=== PATIENT | male | born 1975 | race Caucasian/White ===

== ENCOUNTER 2021-09-12 15:10 | Inpatient (IN) | payer MEDICAID, SELFPAY ==
[2021-09-12] VITALS (11 sets, daily range): BP systolic 84–142; BP diastolic 63–90; PULSE 0–156; RESP 14–31; TEMP 36–36.8; O2SAT 95–98; BMI 30.7
--- NOTE | 2021-09-12 15:39 | XR_ITS ---
WS: [id number] Portable AP upright chest, 09/12/2021 Clinical Data: dyspnea/cough Comparison: Portable chest, 12/17/2018. Findings: No nodules, masses or effusions are seen. The heart is enlarged. The pulmonary vascularity is not increased. No pneumonia or pneumothorax is seen. Monitor leads on the chest wall. XR/XR chest 1V portable [id number] Impression: Cardiomegaly.
--- NOTE | 2021-09-12 15:40 | ECG_ITS ---
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 Measurements Intervals [place] Rate: 149 P: [place]: QRS: 149 QRSD: 91 T: 27 QT: 284 QTc: 448 Interpretive Statements ATRIAL FIBRILLATION WITH RAPID VENTRICULAR RESPONSE POSSIBLE RIGHT VENTRICULAR HYPERTROPHY [SOME/ALL OF: PROMINENT R IN V1, LATE TRANSITION, RAD, KISHAN, SSS] NONSPECIFIC T-WAVE ABNORMALITY Compared to ECG 12/17/2018 14:47:35 Atrial abnormality now present T-wave abnormality now present Sinus rhythm no longer present Sinus arrhythmia no longer present Electronically Signed On 09-12-2021 20:44:47 LAST REPAIRER HELPER by Basim Alford M.D. [id number]
--- NOTE | 2021-09-12 15:42 | ED_ITS ---
HPI - Arrhythmia/Palpitations General: Chief Complaint: Shortness of Breath/Dyspnea Stated Complaint: states has a-fib Time Seen by Provider: 09/12/21 15:39 History of Present Illness: HPI narrative: 46-year-old male presents emergency room with complaint of rapid heart rate. Patient is a known history of atrial fibrillation without ventricular spots in the past he required esmolol after failing several other drips to control his rate. He was admitted. Ultimately discharged home on metoprolol he stopped taking it after a while because he had run out he states he did not have any rapid heart rates and he felt better so he is continue to stay off of that recently he began to have palpitations and rapid heart rate they gave him a double dose of metoprolol yesterday he did not feel good from side effects of meds so he did not take the double dose this morning he took his regular dose he comes in today complaining of shortness of breath rapid heart rate and generally not feeling well. Denies any chest pain. MD complaint: rapid heart beat, skipped beats and palpitations Onset (ago): hour(s) Duration: constant Severity: moderate Context: occurred during rest Arrhythmia history: atrial fibrillation Associated symptoms: Reports anxiety; Deny cough, diaphoresis, muscle cramps, nausea, paresthesias, pre-syncope, sense of impending doom, short of breath, syncope or vomiting Treatments prior to arrival: beta-roxy Review of Systems Const: Denies: diaphoresis ENMT: Denies: throat pain, ear or mastoid pain, nasal discharge or nasal congestion Card: Denies: syncope or pre-syncope Resp: Denies: dyspnea, productive cough or non-productive cough GI: Denies: nausea or vomiting : Denies: flank pain, dysuria, urinary frequency or urinary urgency Musc: Denies: muscle cramps Skin/Breast: Denies: rash or pruritus Psych: Reports: anxiety PFSH ED PFSH: Medical History Paroxysmal atrial fibrillation with RVR Rash Surgical History No history of previous surgery Family History Mother CAD (coronary artery disease) Cancer Lung disease Social History (Updated 09/12/21 @ 18:47 by Jackson Viera MD) Smoking and tobacco status: former smoker Alcohol intake: former Substance/Drug Use: current Substance/Drug use type: Marijuana Lives independently: Yes Marital status: Current occupational status: employed 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 Physical Exam Const: COMMON NORMALS: no acute distress GENERAL APPEARANCE: cooperative and comfortable ORIENTATION/CONSCIOUSNESS: Yes awake HENMT: COMMON NORMALS: normocephalic, atraumatic and hearing grossly normal bilaterally HEAD & SCALP: normocephalic and atraumatic Resp: COMMON NORMALS: normal respiratory effort, No retractions and No use of accessory muscles AUSCULTATION: crackles Laterality: bilateral (At bases) Cardio: RATE: tachycardic RHYTHM: abnormal rhythm irregularly irregular GI: COMMON NORMALS: Soft to palpation and No hepatosplenomegaly present AUSCULTATION: Yes normoactive bowel sounds PALPATION: Yes Soft to palpation, No Tenderness to palpation present (GI), No Guarding due to palpation present (GI) and Yes No hepatosplenomegaly present Extremity: COMMON NORMALS: normal to inspection, capillary refill normal, no clubbing, cyanosis or edema, no calf tenderness and no pedal edema Skin: COMMON NORMALS: no rashes or lesions noted GENERAL SKIN EXAM: no rashes or lesions noted Course Vital Signs: Vital signs: Vital Signs Temperature 97.2 F L 09/14/21 11:55 Pulse Rate 130 H 09/14/21 11:55 Respiratory Rate 19 H 09/14/21 11:55 Blood Pressure 109/93 09/14/21 11:55 Pulse Oximetry 99 09/14/21 11:55 MDM - Arrhythmia/Palpitations MDM Narrative: Medical decision making narrative: Patient improved with initiation of esmolol. Discussed with hospitalist will go ahead and admit orders written. Lab Data: Labs: Lab Results 09/12/21 09/12/21 09/12/21 15:35 15:35 15:35 WBC 15.9 10^3/uL H 10 ^3/uL (4.0-10.0) RBC 5.48 10^6/uL H 10 ^6/uL (4.1-5.3) Hgb 16.5 g/dL g/dL (11.7-16.6) Hct 49.3 % % (42.0-52.0) MCV 90.0 fl fl (80-94) MCH 30.1 pg pg (28.0-34.0) MCHC 33.5 g/dL g/dL (30.0-36.0) RDW 14.2 % % (12.1-15.1) Plt Count 322 10^3/cmm 10^3 /cmm (130-400) MPV 10.3 fL fL (7.4-10.4) Neut % (Auto) 60.9 % % Lymph % (Auto) 25.8 % % [place] % (Auto) 11.8 % % Eos % (Auto) 0.6 % % Baso % (Auto) 0.6 % % Neut # (Auto) 9.66 10^3/uL H 10 ^3/uL (1.8-7.7) Lymph # (Auto) 4.1 10^3/uL 10^3/ uL (0.8-4.8) [place] # (Auto) 1.9 10^3/uL H 10^ 3/uL (0.2-0.9) Eos # (Auto) 0.1 10^3/uL 10^3/ uL (0.0-0.8) Baso # (Auto) 0.1 10^3/uL 10^3/ uL (0.0-0.1) Nucleated RBC % (a uto) 0 % % Nucleated RBCs # 0.0 /100WBC /100W BC D-Dimer Sodium 133 mmol/L L mmol /L (136-145) Potassium 5.3 mmol/L H mmol /L (3.5-5.1) Chloride 100 mmol/L mmol/L (98-107) Carbon Dioxide 21 mmol/L L mmol/ L (22-29) Anion Gap 17.3 (5-19) BUN 27 mg/dL H mg/dL (6-20) Creatinine 1.0 mg/dL mg/dL (0.7-1.2) GFR Calculation 80.1 mL/min L mL/ min (90-130) Glucose 103 mg/dL mg/dL (65-115) Calculated Osmolal ity 281 mOsm/kg L mOs m/kg (285-295) Calcium 9.1 mg/dL mg/dL (8.5-10.5) Total Bilirubin 1.6 mg/dL H mg/dL (0.15-1.2) AST 243 U/L H U/L (0-40) ALT 400 U/L H U/L (0-41) Alkaline Phosphata se 228 IU/L H IU/L (40-130) Creatine Kinase 431 U/L H* U/L (39-308) Troponin T Baselin e 27 ng/L H ng/L (0-15) Troponin T 120 Min [place] Delta Troponin T C-Reactive Protein NT-Pro-B Natriuret Pep 9375 pg/mL H pg/m L (0-125) Total Protein 5.9 g/dL L g/dL (6.6-8.7) Albumin 4.0 g/dL g/dL (3.5-5.2) Globulin 1.9 g/dL g/dL (1.3-4.6) TSH Hepatitis A IgM Ab Hep Bs Antigen Hep B Core IgM Ab Hepatitis C Antibo dy SARS-CoV-2 Ag (Rap id) 09/12/21 09/12/21 09/12/21 15:35 17:40 17:40 WBC RBC Hgb Hct MCV MCH MCHC RDW Plt Count MPV Neut % (Auto) Lymph % (Auto) [place] % (Auto) Eos % (Auto) Baso % (Auto) Neut # (Auto) Lymph # (Auto) [place] # (Auto) Eos # (Auto) Baso # (Auto) Nucleated RBC % (a uto) Nucleated RBCs # D-Dimer 1.09 ug/mIFEU H u g/mIFEU (0-0.59) Sodium Potassium Chloride Carbon Dioxide Anion Gap BUN Creatinine GFR Calculation Glucose Calculated Osmolal ity Calcium Total Bilirubin AST ALT Alkaline Phosphata se Creatine Kinase Troponin T Baselin e Troponin T 120 Min [place] 26.08 ng/L H ng/L (0-15) Delta Troponin T -0.92 ABS# L ABS# (0-10) C-Reactive Protein NT-Pro-B Natriuret Pep Total Protein Albumin Globulin TSH Hepatitis A IgM Ab Non-reactive (Nonreactive) Hep Bs Antigen Non-reactive (Nonreactive) Hep B Core IgM Ab Non-reactive (Nonreactive) Hepatitis C Antibo dy Non-reactive (Nonreactive) SARS-CoV-2 Ag (Rap id) 09/12/21 09/12/21 17:40 18:30 WBC RBC Hgb Hct MCV MCH MCHC RDW Plt Count MPV Neut % (Auto) Lymph % (Auto) [place] % (Auto) Eos % (Auto) Baso % (Auto) Neut # (Auto) Lymph # (Auto) [place] # (Auto) Eos # (Auto) Baso # (Auto) Nucleated RBC % (a uto) Nucleated RBCs # D-Dimer Sodium Potassium Chloride Carbon Dioxide Anion Gap BUN Creatinine GFR Calculation Glucose Calculated Osmolal ity Calcium Total Bilirubin AST ALT Alkaline Phosphata se Creatine Kinase Troponin T Baselin e Troponin T 120 Min [place] Delta Troponin T C-Reactive Protein 7.4 mg/L H mg/L (0.0-4.9) NT-Pro-B Natriuret Pep Total Protein Albumin Globulin TSH 1.84 uIU/mL uIU/m L (0.27-4.20) Hepatitis A IgM Ab Hep Bs Antigen Hep B Core IgM Ab Hepatitis C Antibo dy SARS-CoV-2 Ag (Rap id) Negative (Negative) Discharge Plan Discharge Patient Disposition: Admitted As Inpatient Admit Provider: Jackson Viera Clinical Impression: Paroxysmal atrial fibrillation with RVR, Acute CHF Condition: Stable Coding Level of Care Code ED Coloring Room Worker for Chg Fwd Exam Detailed
[2021-09-12 15:50] LABS: Basophils # 0.1 10^3/uL (0.0-0.1); Basophils % 0.6 %; Eosinophils # 0.1 10^3/uL (0.0-0.8); Eosinophils % 0.6 %; Hematocrit 49.3 % (42.0-52.0); Hemoglobin 16.5 g/dL (11.7-16.6); Lymphocytes # 4.1 10^3/uL (0.8-4.8); Lymphocytes % 25.8 %; Mean Corpuscular HGB Conc 33.5 g/dL (30.0-36.0); Mean Corpuscular Hemoglobin 30.1 pg (28.0-34.0); Mean Platelet Volume 10.3 fL (7.4-10.4); Monocytes # 1.9 10^3/uL (0.2-0.9); Monocytes % 11.8 %; Neutrophils # 9.66 10^3/uL (1.8-7.7); Neutrophils % 60.9 %; Nucleated Red Blood Cells % 0 %; Platelet Count 322 10^3/cmm (130-400); Red Blood Count 5.48 10^6/uL (4.1-5.3); Red Cell Distribution Width 14.2 % (12.1-15.1); White Blood Count 15.9 10^3/uL (4.0-10.0)
[2021-09-12] MEDS: esmolol drip 2,500 MG/250 ML PREMIX 30.89 MG IV (15:58)
[2021-09-12 16:23] LABS: Troponin(5th) Baseline 27 ng/L (0-15)
[2021-09-12 16:27] LABS: Alanine Aminotransferase 400 U/L (0-41); Alkaline Phosphatase 228 IU/L (40-130); Anion Gap 17.3 (5-19); Aspartate Amino Transferase 243 U/L (0-40); Blood Urea Nitrogen 27 mg/dL (6-20); Calcium 9.1 mg/dL (8.5-10.5); Carbon Dioxide 21 mmol/L (22-29); Chloride 100 mmol/L (98-107); Globulin 1.9 g/dL (1.3-4.6); Glomerular Filtration Rate 80.1 mL/min (90-130); Glucose 103 mg/dL (65-115); NT Pro B Type Natriuretic Pept 9375 pg/mL (0-125); Osmolality Calculated 281 mOsm/kg (285-295); Potassium 5.3 mmol/L (3.5-5.1); Sodium 133 mmol/L (136-145); Total Bilirubin 1.6 mg/dL (0.15-1.2); Total Protein 5.9 g/dL (6.6-8.7)
[2021-09-12 16:29] LABS: Creatine Phosphokinase 431 U/L (39-308)
--- NOTE | 2021-09-12 17:13 | USR_ITS ---
PROCEDURE INFORMATION: Exam: US Abdomen, Limited; Right Upper Quadrant Exam date and time: 09/12/2021 5:13 PM Age: 46 years old Clinical indication: Abdominal pain; Acute; Additional info: Abd pain TECHNIQUE: Imaging protocol: US abdomen. Real time ultrasound with image documentation. Limited exam focused on the right upper quadrant. Total images: 52 COMPARISON: No relevant prior studies available. FINDINGS: Pleural spaces: Scant right pleural effusion. Liver: Normal hepatic parenchyma echogenicity. No visible hepatic mass or cystic lesion. Gallbladder: Diffuse gallbladder wall thickening measuring upwards of 6.5 mm. No visible pericholecystic fluid. No visible cholelithiasis. Negative sonographic Merlos's sign. Common bile duct: Normal. No stones. No dilation. Common bile duct measures 3 mm. Pancreas: Visualized pancreas is unremarkable. No grossly visible pancreatic ductal ectasia. Right kidney: Normal. No mass. No hydronephrosis. Dimensions of the right kidney 9.1 cm x 4.3 cm x 5.8 cm. Aorta: The abdominal aorta, where visualized, is nonaneurysmal. Portal venous: Antegrade portal venous flow. Inferior vena cava: Patent inferior vena cava. US/US gall bladder 24050 IMPRESSION: 1. Diffuse gallbladder wall thickening. 2. No visible cholelithiasis. 3. Scant right pleural effusion. Radiation Dose CTDIVOL = (mGy): DLP = (mGy-cm)
[2021-09-12 17:50] LABS: Hepatitis A Antibody IgM Non-Reactive (Nonreactive); Hepatitis B Core IgM Non-Reactive (Nonreactive); Hepatitis B Surface Antigen Non-Reactive (Nonreactive); Hepatitis C Virus Antibody Non-Reactive (Nonreactive)
--- NOTE | 2021-09-12 18:17 | P.HP_ITS ---
Providers/Chief Complaint Primary Care Provider: Nandini Rivera Chief Complaint: states has a-fib History of Present Illness Pleasant 46-year-old gentleman with a past history of A. fib with RVR he states about 4 years ago, subsequently transiently on metoprolol, improved, discontinued metoprolol subsequently and states was doing better after stopping the medication. Presents to the hospital today due to malaise yesterday with feeling of severe fatigue, chills, muscle aches, headache, nausea, vomiting, diarrhea. No cough. No chest pain or pressure. No hemoptysis. On the urging of his friends and family to be assessed by primary care provider Dr. Rivera due to persistent symptoms of fatigue, palpitations, found to have A. fib for which he was started on metoprolol. Dose was doubled 2 days ago, and states he felt much worse after that. Reports days lower extremity swelling, previously without lower extremity edema. In ER noted in A. fib with RVR, heart rate 148. Started on esmolol drip, with transient improvement in heart rate, but hypotensive. Drip. Rate is decreased. He reports symptoms of CHF with lower extremity edema, orthopnea, dyspnea. EKG not suggestive of AMI, with atrial fibrillation. Troponin so far without peak 27-26. Elevated NT proBNP at 9375. Cardiomegaly noted on chest x-ray. COVID-19 testing is requested. Noted leukocytosis 15.9. Noted liver parameter abnormalities with T bili 1.6, AST 243, ALT 400, alk phos 228. Noted mild rhabdomyolysis, CK 431. He reports headache has been abating. He reports fullness in his left ear and feeling underwater . Denies sore throat. Denies any drainage. Some bulging is noted and panic membrane, no fluid, blood, erythema, EAM normal. He otherwise reports history of some unusual symptoms with some photosensitivity, some rashes which were appearing about a year ago after a viral-like illness which she thought was possibly COVID-19. This seems to have resolved in the last several months. Denies any mucosal or genital lesions. Overall feels he did not has not felt very well after receiving his 2 maternal vaccine doses for COVID-19. Review of Systems Const: Reports: chills, body aches, malaise and night sweats Eyes: Denies: change in vision or eye redness ENMT: Denies: throat pain, oral sores or ear or mastoid pain Card: Reports: edema, dyspnea on exertion and orthopnea; Denies: chest pain or pre-syncope Resp: Denies: dyspnea, productive cough, change in phlegm color or hemoptysis GI: Reports: nausea, vomiting, heartburn, diarrhea and belching; Denies: abdominal pain, constipation, hematochezia or melena : Denies: flank pain, difficulty urinating, urinary frequency or hematuria Musc: Denies: back pain, joint swelling or joint redness Skin/Breast: Reports: rash (for about a year interm rash, peripheral photosensitivity); Denies: sores or new lesions Neuro: Denies: headache(s), numbness in extremities, weakness in extremities, dizziness, confusion or seizure-like activity Endo: Denies: polyuria or polydipsia Coleman/Lymph: Denies: easy bleeding or purpura All/Imm: Denies: urticaria, throat swelling or tongue swelling PFSH Acute PFSH: Medical History Paroxysmal atrial fibrillation with RVR Rash Surgical History No history of previous surgery Family History Mother CAD (coronary artery disease) Cancer Lung disease Social History (Updated 09/12/21 @ 18:47 by Jackson Viera MD) Smoking and tobacco status: former smoker Alcohol intake: former Substance/Drug Use: current Substance/Drug use type: Marijuana Lives independently: Yes Marital status: Current occupational status: employed 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 Const: COMMON NORMALS: no acute distress, patient oriented x3 and alert GENERAL APPEARANCE: cooperative; not comfortable ORIENTATION/CONSCIOUSNESS: Yes awake HENMT: COMMON NORMALS: oropharynx normal TYMPANIC MEMBRANE: TM abnormal TM laterality: right Details: bulging Resp: COMMON NORMALS: normal respiratory effort and clear to auscultation bilaterally AUSCULTATION: clear to auscultation bilaterally Cardio: COMMON NORMALS: no JVD, regular rhythm, S1 normal heart sound present, S2 normal heart sound present and No murmurs present (Cardio) RATE: tachycardic RHYTHM: abnormal rhythm irregularly irregular HEART SOUNDS: S1 normal heart sound present and S2 normal heart sound present GI: COMMON NORMALS: Normal to inspection, nondistended, normoactive bowel sounds present, Soft to palpation and non-tender PALPATION: Yes Soft to palpation Extremity: COMMON NORMALS: no joint enlargement GENERAL: Yes edema (3+ ankles) Neuro: COMMON NORMALS: patient oriented x3 and moves all extremities Skin: COMMON NORMALS: no rashes or lesions noted GENERAL SKIN EXAM: no rashes or lesions noted OTHER: Healing excoriations lower shins Data : 09/12/21 15:35 09/12/21 15:35 A&P Assessment and plan (1) Acute CHF: Peripheral edema, orthopnea, worse especially in the last 2 days after his metoprolol dose was doubled. Denies leg edema prior to that. Cardiomegaly noted on chest x-ray. Elevated BNP. Appears to have new congestive heart failure, type unknown. Will need additional assessment by TTE once heart rate allows. Discussed with him initially for symptomatic treatment starting on some Lasix, but will have to be cautious due to soft blood pressure already with A. fib with RVR with treatment. Discussed with him concern for right heart failure given peripheral edema, possibly also causing the abnormal liver function parameters. Denies any chest pain or pressure. No ischemic changes on EKG. Reports palpitations going on for probably 8 months, and so discussed with him possibility of tachycardia induced cardiomyopathy following A. fib with RVR. States that he has not seen a doctor for a long time and was finally convinced by his family/friends to seek medical attention. Discussed with him with history of smoking, history of CAD in his family, would benefit from stress testing as well at some point. Status: Acute (2) Malaise: Reports malaise, chills, body aches, dyspnea, indigestion, nausea, vomiting, eructation, diarrhea last day or 2. Afebrile here, but with leukocytosis. Doing okay on room air currently, but subjective dyspnea. Has previously received COVID-19 vaccination with tumor during her shots. COVID-19 testing requested. Reports additionally persistent fatigue. We will check TSH. CRP. Monospot. Tick panel. Additional assessment of acute CHF as above. Abnormal liver parameters, additional assessment by gallbladder ultrasound, follow-up imaging. Status: Acute (3) Hyperbilirubinemia: Follow-up gallbladder ultrasound. Discussed with him consideration of possible infection, although he is not having abdominal pain right upper quadrant. Afebrile. Leukocytosis may be following nausea vomiting episodes. Will follow results. Additionally possibility of right heart failure with noted cardiomegaly, acute CHF, possibly contributing to liver congestion, cholestasis. Status: Acute (4) Transaminitis: Acute hepatitis panel obtained, negative. Follow-up gallbladder ultrasound. As discussed possibility of right heart failure contributing to liver congestion. Status: Acute (5) Hyperkalemia: Low potassium diet. Reassess potassium level. Status: Acute (6) Nausea and vomiting: PPI, Zofran as needed. Status: Acute (7) Leukocytosis: Entirely clear etiology, possibly secondary to recent nausea and vomiting. No suggestion of focal pneumonia on chest x-ray. COVID-19 testing requested. Follow-up gallbladder ultrasound. Additional assessment with Monospot. Tick panel. Status: Acute (8) Paroxysmal atrial fibrillation with RVR: Prior history of A. fib with RVR and was temporarily on metoprolol. Subsequently felt better discontinue metoprolol and states felt better after stopping the medication. Recently palpitations again, finally had seen a doctor and was prescribed metoprolol. Dose was doubled several days ago due to tachycardia. In ER started on esmolol, with some response, heart rates down from high 140s to 110, but with decrease in blood pressure. Decreased rate of as well. Will give a dose of digoxin. Try to wean esmolol drip. Check TSH. Assess TTE once heart rate allows. Discussed with him would benefit from also assessment by stress testing once heart rates better controlled. With CHF [id number] score of 1. May benefit from aspirin for stroke prophylaxis. Status: Acute (9) Ear fullness: Left ear fullness, some mild bulging of the left tympanic membrane, I do not see effusion, bleeding, erythema, normal EAM. Monospot. Status: Acute Additional A&P Information Prior history of rashes/photosensitivity after viral infection (he thinks possible COVID) in 2020. Denies oral or genital lesions. No recent problems in last several months. Attestations Medical Necessity Statement*: Admission of over 2 midnights is anticipated for assessment of management of acute CHF, A. fib with RVR with difficulties with treatment with esmolol drip so far with hypotension. Coding Level of Care Code Acute Melt Down Furnace Operator for Antonette Rodas Diagnoses Acute CHF I50.9 Malaise R53.81 Hyperbilirubinemia E80.6 Transaminitis R74.01 Hyperkalemia E87.5 Nausea and vomiting R11.2 Leukocytosis D72.829 Paroxysmal atrial fibrillation with RVR I48.0 Ear fullness H93.8X9
[2021-09-12 18:26] LABS: Troponin 5 2HR 26.08 ng/L (0-15)
[2021-09-12 18:29] LABS: Troponin 5 2HR Delta -0.92 ABS# (0-10)
[2021-09-12 19:09] LABS: C Reactive Protein 7.4 mg/L (0.0-4.9); D Dimer 1.09 ug/mIFEU (0-0.59); Thyroid Stimulating Hormone 1.84 uIU/mL (0.27-4.20)
[2021-09-12 19:09] LABS: SARS Covid-2 Antigen Negative (Negative)
--- NOTE | 2021-09-12 19:16 | PC.NURSE ---
Admit Note Patient admitted to CSU room 104 from ED via stretcher. Patient able to ambulate without difficulty. Reports having improvement to SOB. Patient reports not taking any home medications in ~2years. Covering service notified. Patient presents with elevated heart rate and increased SOB. Orders reviewed & will continue to monitor. Patient and/or civil rights representative oriented to environment, equipment, and informed of the following as found in the admission booklet: patient rights & responsibilities, visitor policy, hand and respiratory hygiene practice. Other education includes: esmolol and digoxin. Patient verbalized complete understanding.
--- NOTE | 2021-09-12 19:39 | PC.NURSE ---
Having difficulty obtaining blood pressure. BP to right forearm is 142/90, and BP to right ankle is 116/80.
--- NOTE | 2021-09-12 19:41 | PC.NURSE ---
BP taken right ankle.
--- NOTE | 2021-09-12 19:49 | PC.NURSE ---
Patient unable to lie flat due to increased SOB. Gasps for air while lying. Patient reports having to sleep in upright position for a few weeks. Also informed me that he has not slept in several days. Patient SpO2 showing 80% currently. Placed 2L via NC at this time.
[2021-09-12] MEDS: enoxaparin 40 mg/0.4 mL Syringe SUBCUT (20:19)
[2021-09-12] MEDS: FUROsemide 10 mg/mL SDV 2mL 20 MG IVP (20:19)
[2021-09-12] MEDS: digoxin 250 mcg/ml INJ 2 mL IVP (20:20)
--- NOTE | 2021-09-12 20:26 | PC.NURSE ---
Apical rate 123.
--- NOTE | 2021-09-12 21:40 | ECG_ITS ---
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 Measurements Intervals [place] Rate: 124 P: [place]: QRS: 122 QRSD: 100 T: 161 QT: 305 QTc: 439 Interpretive Statements ATRIAL FIBRILLATION WITH RAPID VENTRICULAR RESPONSE POSSIBLE RIGHT VENTRICULAR HYPERTROPHY [SOME/ALL OF: PROMINENT R IN V1, LATE TRANSITION, RAD, KISHAN, SSS] MODERATE T-WAVE ABNORMALITY, CONSIDER LATERAL ISCHEMIA [-0.1+ mV T WAVE IN I/aVL/V5/V6] Compared to ECG 09/12/2021 15:31:19 Possible ischemia now present T-wave abnormality still present Electronically Signed On 09-13-2021 22:52:58 JOURNAL ENTRY AUDIT CLERK by Basim Alford M.D. [id number]
--- NOTE | 2021-09-12 22:38 | PC.NURSE ---
Patient continues on esmolol at 50mcg/kg/min. Patient heart rate upper 100s to 130s. Patient continues with some shortness of breath. Confirmed with SALVADOR Degroot okay to keep this patient on CSU at this time. Patient is doing well. Denies pain or other complaints. Patient remains ambulatory. No distress observed.
[2021-09-12] MEDS: esmolol drip 2,500 MG/250 ML PREMIX 46.33 MG IV (22:44)
[2021-09-12 22:50] LABS: Troponin 5 6HR 20.64 ng/L (0-15)
[2021-09-12 23:01] LABS: Troponin 5 6HR Delta -6.36 ng/L (0-12)
[2021-09-12 23:15] LABS: Monoscreen Negative (Negative)
[2021-09-13] VITALS (20 sets, daily range): BP systolic 95–128; BP diastolic 76–103; PULSE 97–129; RESP 16–36; TEMP 36.4–37; O2SAT 91–98
[2021-09-13 03:48] LABS: Basophils # 0.1 10^3/uL (0.0-0.1); Basophils % 0.5 %; Eosinophils % 0.3 %; Hematocrit 43.8 % (42.0-52.0); Hemoglobin 14.6 g/dL (11.7-16.6); Lymphocytes # 3.1 10^3/uL (0.8-4.8); Lymphocytes % 26.5 %; Mean Corpuscular HGB Conc 33.3 g/dL (30.0-36.0); Mean Corpuscular Hemoglobin 30.5 pg (28.0-34.0); Mean Corpuscular Volume 91.4 fl (80-94); Mean Platelet Volume 10.4 fL (7.4-10.4); Monocytes # 1.5 10^3/uL (0.2-0.9); Monocytes % 12.9 %; Neutrophils % 59.5 %; Nucleated Red Blood Cells % 0 %; Platelet Count 278 10^3/cmm (130-400); Red Blood Count 4.79 10^6/uL (4.1-5.3); Red Cell Distribution Width 14.3 % (12.1-15.1); White Blood Count 11.6 10^3/uL (4.0-10.0)
[2021-09-13] MEDS: esmolol drip 2,500 MG/250 ML PREMIX 46.33 MG IV (04:04)
[2021-09-13 04:19] LABS: Alanine Aminotransferase 382 U/L (0-41); Albumin Level 3.2 g/dL (3.5-5.2); Alkaline Phosphatase 158 IU/L (40-130); Aspartate Amino Transferase 251 U/L (0-40); Blood Urea Nitrogen 32 mg/dL (6-20); Carbon Dioxide 22 mmol/L (22-29); Chloride 101 mmol/L (98-107); Glomerular Filtration Rate 54.3 mL/min (90-130); Glucose 106 mg/dL (65-115); Osmolality Calculated 289 mOsm/kg (285-295); Sodium 136 mmol/L (136-145); Total Bilirubin 1.4 mg/dL (0.15-1.2); Total Protein 5.2 g/dL (6.6-8.7)
--- NOTE | 2021-09-13 05:49 | PC.NURSE ---
Shift Note Frequent safety and comfort rounds continue. Orders and/or nursing care completed as indicated. Patient monitored for response to intervention and treatment(s). Education provided includes esmolol. Patient verbalized complete understanding. Patient heart rate gradually decreasing mid 90s to mid 110s. Patient reports able to breathe much better. Is currently on room at with SpO2 of 93. Esmolol drip continues at 75mcg/kg/min presently. BP's as documented. No other distresses observed. Will continue to monitor.
[2021-09-13 08:54] LABS: Creatine Phosphokinase 280 U/L (39-308)
[2021-09-13] MEDS: digoxin 250 mcg/ml INJ 2 mL IVP ×2 (09:16→11:16)
[2021-09-13] MEDS: pantoprazole DR 40 mg Tablet PO (09:16)
--- NOTE | 2021-09-13 10:31 | PC.CHAP ---
Pastoral Care Encounter/Spiritual Assessment Type of Contact [] Declined supervisor film processing visit [] Patient/Family/Request visit [] Outpatient visit [] Follow-up visit [] Physician referral [] Code/Alert [x] Routine visit [] Staff referral [] Actively dying [] Patient sleeping [] Family support [] [] Out of room [] Palliative care [] [x] Receiving care in room [] Pre-surgical visit [] Trauma [] Long length of stay [] ICU visit [] Other: Relational/Emotional Strength [x] Patient feels connected with others/family/visitors/staff [] Distress [] Loneliness/isolation [] Abandonment Spirituality of Patient [x] Person of Ester [] Attends Hinduism of their Ester [x] Believes in Prayer [] Reads Bible or Moravian materials [] There are Spiritual issues to be addressed Automatic Stacker Interventions [x] Prayer [x] Active listening [x] Non-anxious presence [x] Spiritual/emotional support [] Crisis/trauma care [x] Spiritual counseling [] Bereavement support [] Provided bereavement packet [] Provided Bible/devotional materials [] Provided toy/stuffed animal, coloring book to patient or family member [] Provided Communion [] Anointing/[place] [] Salvation [x] Completed spiritual assessment [] Other: Impact on Illness or Injury [] Angry [] Fearful [x] Anxious [] Often cries [] Exhaustion [] Unable to work [] Unable to attend buddhism [] Unable to walk/stand [] Unable to read [] Unable to drive [] Unable to eat/drink [] Unable to sleep [] Unable to be with family [] Patient intubated [] Other: Summary has had tests feels good adding meds to his health and will be going back a normal rutean and back to work Time spent with patient 10 mins
[2021-09-13] MEDS: esmolol drip 2,500 MG/250 ML PREMIX 30.89 MG IV (10:58)
[2021-09-13] MEDS: FUROsemide 10 mg/mL SDV 2mL 20 MG IVP (11:16)
--- NOTE | 2021-09-13 13:22 | PC.NURSE ---
Patient ordered food from out side hospital
--- NOTE | 2021-09-13 15:15 | P.PN_ITS ---
Subjective Subjective: Interval history: Today he is feeling quite significantly better. States abdominal bloating has improved. Lower extremity edema is subsiding. He is not feeling so fatigued. No chest pain or pressure. No symptoms from A. fib with RVR this morning. Discussed with him regarding obtaining an echo once heart rate better controlled. Discussed with him also regarding noted acute kidney injury. We also discussed regarding ultrasound results, HIDA scan results. Discussed with him consideration of additional digoxin dosing. Discussed the junction is not a first-line medication, however, he has not had a favorable response to beta-blockers, and yesterday with hypotension, so would be concerned starting him on calcium channel roxy, also with congestive heart failure. Discussed with him risks especially with acute kidney injury. Discussed consideration of stress testing as well. Vitals/I&O/Wt Last Vital Signs Temp 97.5 F L 09/13/21 03:20 Pulse 97 09/13/21 14:00 Resp 26 H 09/13/21 13:19 BP 122/103 09/13/21 10:00 Pulse Ox 97 09/13/21 13:19 09/13/21 09/13/21 09/13/21 06:59 14:59 22:59 Intake Total 250 / 859.681 970.000 / 970.000 Output Total 750 / 1950 1000 / 1000 Balance -500 / -1090.319 -30.000 / -30.000 Weight last 48 hrs Weight 103.102 kg Weight 90.718 kg Weight 102.965 kg Physical Exam Narrative: EXAM NARRATIVE: Sitting up at edge of bed. Visited by friend. Const: COMMON NORMALS: no acute distress, patient oriented x3 and alert GENERAL APPEARANCE: cooperative; not comfortable ORIENTATION/CONSCIOUSNESS: Yes awake HENMT: COMMON NORMALS: oropharynx normal TYMPANIC MEMBRANE: TM abnormal TM laterality: right Details: bulging Neck/C-Spine: COMMON NORMALS: no JVD Resp: COMMON NORMALS: normal respiratory effort and clear to auscultation [place] aterally AUSCULTATION: clear to auscultation bilaterally Cardio: COMMON NORMALS: no JVD, regular rhythm, S1 normal heart sound present, S2 normal heart sound present and No murmurs present (Cardio) RATE: tachycardic RHYTHM: regular rhythm and abnormal rhythm irregularly irregular HEART SOUNDS: S1 normal heart sound present and S2 normal heart sound present GI: COMMON NORMALS: Normal to inspection, nondistended, normoactive bowel sounds present, Soft to palpation and non-tender PALPATION: Yes Soft to palpation Extremity: COMMON NORMALS: no joint enlargement GENERAL: Yes edema (3+ ankles) Neuro: COMMON NORMALS: patient oriented x3 and moves all extremities SENSORIUM/ORIENTATION: Yes alert Skin: COMMON NORMALS: no rashes or lesions noted GENERAL SKIN EXAM: no rashes or lesions noted OTHER: Healing excoriations lower shins Data : 09/13/21 03:13 09/13/21 03:13 A&P Assessment and plan (1) Acute CHF: Improving symptoms. Responded well to 20 mg IV Lasix, repeated this afternoon. Monitor renal function, however, with noted acute kidney injury, although suspected secondary to episodes of transient hypotension yesterday. Heart rates better today, requested TTE. Underwent HIDA scan, so this time cannot assess with stress test tomorrow. Peripheral edema, orthopnea. Denies leg edema prior to that. Cardiomegaly noted on chest x-ray. Elevated BNP. Appears to have new congestive heart failure, type unknown. Discussed with him concern for right heart failure given peripheral edema, possibly also causing the abnormal liver function parameters. Denies any chest pain or pressure. No ischemic changes on EKG. Reports palpitations going on for probably 8 months, and so discussed with him p ossibility of tachycardia induced cardiomyopathy following A. fib with RVR. States that he has not seen a doctor for a long time and was finally convinced by his family/friends to seek medical attention. Discussed with him with history of smoking, history of CAD in his family, would benefit from stress testing as well at some point. States he has not paid much attention to his heart rate/tachycardia given he is always on the go, and has not had any symptoms. Status: Acute (2) Malaise: Mostly resolved. Reports malaise, chills, body aches, dyspnea, indigestion, nausea, vomiting, eructation, diarrhea last day or 2. Afebrile here, but with leukocytosis. Doing okay on room air. Has previously received COVID-19 vaccination with tumor during her shots. COVID-19 testing requested. Fatigue better, may have been related to beta-blockade, CHF exacerbation fluid overload. Normal TSH. Near normal CRP. Monospot negative. Tick panel pending. Additional assessment of acute CHF as above. Abnormal liver parameters, additional assessment by gallbladder ultrasound, follow-up imaging. Status: Acute (3) Hyperbilirubinemia: Gallbladder wall thickening ultrasound. HIDA scan unremarkable. No sign of cholecystitis. No right upper quadrant pain. Improving with diuresis. Much less likely infectious cause. Suspected right heart failure with noted cardiomegaly, acute CHF, possibly contributing to liver congestion, cholestasis. Status: Acute (4) Transaminitis: Improving with diuresis. Status: Acute (5) Hyperkalemia: Low potassium diet. Reassess potassium level. Status: Acute (6) Nausea and vomiting: PPI, Zofran as needed. Status: Acute (7) Leukocytosis: Entirely clear etiology, possibly secondary to recent nausea and vomiting. No suggestion of focal pneumonia on chest x-ray. COVID-19 testing requested. Unlikely biliary infection. Negative Monospot. Tick panel pending. Status: Acute (8) Paroxysmal atrial fibrillation with RVR: Additional digoxin doses today x2. Heart rates for a while better into the 90s. Will check digoxin level again in the morning given BRANDYN. Wean off esm olol. Prior history of A. fib with RVR and was temporarily on metoprolol. Subsequently felt better discontinue metoprolol and states felt better after stopping the medication. Recently palpitations again, finally had seen a doctor and was prescribed metoprolol. Normal TSH. Assess TTE once heart rate allows. Discussed with him would benefit from also assessment by stress testing once heart rates better controlled. With CHF [id number] score of 1. May benefit from aspirin for stroke proph ylaxis. Status: Acute (9) Ear fullness: Has been having some nasal congestion. We will add antihistamine for symptoms. Left ear fullness, some mild bulging of the left tympanic membrane, I do not see effusion, bleeding, erythema, normal EAM. Monospot negative. Status: Acute Additional A&P Information Prior history of rashes/photosensitivity after viral infection (he thinks possible COVID) in 2020. Denies oral or genital lesions. No recent problems in last several months. Attestations Medical Necessity Statement*: Continue admission for optimization of control of A. fib with RVR, treatment and additional assessment of acute CHF. Coding Level of Care Code Acute Cut Out Operator for [facility] Adrianna Diagnoses Acute CHF I50.9 Malaise R53.81 Hyperbilirubinemia E80.6 Transaminitis R74.01 Hyperkalemia E87.5 Nausea and vomiting R11.2 Leukocytosis D72.829 Paroxysmal atrial fibrillation with RVR I48.0 Ear fullness H93.8X9
--- NOTE | 2021-09-13 19:12 | NM_ITS ---
WS: [id number] NUCLEAR MEDICINE HIDA SCAN WITH GALLBLADDER EJECTION FRACTION HISTORY: assess for cholecystitis COMPARISON: 09/12/2021 TECHNIQUE: The patient was intravenously injected with 6.2 mCi of TC99m Mebrofenin. Immediate imaging over the right upper quadrant was followed by 5 minute image and additional images for a total of 60 minutes. Normal uptake of radiotracer throughout the liver. Activity identified in the gallbladder at 50 minutes and well distended by 60 minutes. Activity in the proximal small bowel was seen by 15 minutes. Good washout of the radiotracer from the liver by 60 minutes. The patient then drank 8 ounces of Ensure Plus. Ejection fraction at 65 minutes was 50%. Normal GB ej ection fraction is 35-75%. Post fatty meal symptoms: None. NM/NM hepatobiliary w phar* [id number] IMPRESSION: 1. Normal HIDA scan. 2. Normal gallbladder ejection fraction.
--- NOTE | 2021-09-13 19:49 | PC.NURSE ---
Received report from SALVADOR Armenta. Patient resting in bed watching TV. Stopped esmolol drip at this time. Heart rate currently upper 80s to low 100s. Patient reports feeling much better and breathing easier. Discussed scheduled Lexiscan for in the am. Patient verbalized complete understanding. Denies pain. No distress observed.
[2021-09-13] MEDS: enoxaparin 40 mg/0.4 mL Syringe SUBCUT (20:00)
[2021-09-13] MEDS: cetirizine 10 mg Tablet PO (23:30)
[2021-09-14] VITALS (9 sets, daily range): BP systolic 109–131; BP diastolic 83–100; PULSE 96–145; RESP 18–22; TEMP 36.2–37.1; O2SAT 96–100
[2021-09-14 05:04] LABS: Basophils # 0.1 10^3/uL (0.0-0.1); Eosinophils # 0.2 10^3/uL (0.0-0.8); Eosinophils % 1.8 %; Hematocrit 44.4 % (42.0-52.0); Hemoglobin 14.4 g/dL (11.7-16.6); Lymphocytes # 3.3 10^3/uL (0.8-4.8); Lymphocytes % 31.3 %; Mean Corpuscular HGB Conc 32.4 g/dL (30.0-36.0); Mean Corpuscular Hemoglobin 29.5 pg (28.0-34.0); Mean Platelet Volume 10.2 fL (7.4-10.4); Monocytes # 1.1 10^3/uL (0.2-0.9); Monocytes % 10.3 %; Neutrophils # 5.76 10^3/uL (1.8-7.7); Neutrophils % 55.4 %; Nucleated Red Blood Cells % 0 %; Platelet Count 239 10^3/cmm (130-400); Red Blood Count 4.88 10^6/uL (4.1-5.3); Red Cell Distribution Width 14.2 % (12.1-15.1); White Blood Count 10.4 10^3/uL (4.0-10.0)
[2021-09-14 05:30] LABS: Alanine Aminotransferase 269 U/L (0-41); Alkaline Phosphatase 117 IU/L (40-130); Anion Gap 12.2 (5-19); Aspartate Amino Transferase 132 U/L (0-40); Blood Urea Nitrogen 27 mg/dL (6-20); Calcium 7.7 mg/dL (8.5-10.5); Carbon Dioxide 25 mmol/L (22-29); Chloride 101 mmol/L (98-107); Digoxin 0.7 ng/mL (0.6-1.2); Globulin 1.8 g/dL (1.3-4.6); Glomerular Filtration Rate 80.1 mL/min (90-130); Glucose 87 mg/dL (65-115); Magnesium 2.1 mg/dL (1.7-2.3); Osmolality Calculated 282 mOsm/kg (285-295); Potassium 4.2 mmol/L (3.5-5.1); Sodium 134 mmol/L (136-145); Total Bilirubin 1.1 mg/dL (0.15-1.2); Total Protein 4.8 g/dL (6.6-8.7)
--- NOTE | 2021-09-14 06:00 | USCV_ITS ---
Andrea Jhaveri Age: 46 Gender: M : 1975 Exam Date: 09/14/2021 06:31 Ordering Phys: Jackson Viera MD Technologist: CLAY [place] [facility] [place]ication: ACUTE CHF BP: 103 / 75 HR: 109 Rhythm: Atrial fibrillation Technical Quality: Technically difficult study MEASUREMENTS (Male / Female) Normal Values 2D ECHO LV Diastolic Diameter PLAX 5.5 cm 4.2 - 5.9 / 3.9 - 5.3 cm LV Systolic Diameter PLAX 5.3 cm IVS Diastolic Thickness 1.2 cm 0.6 - 1.0 / 0.6 - 0.9 cm IVS Systolic Thickness 1.6 cm LVPW Diastolic Thickness 1.4 cm 0.6 - 1.0 / 0.6 - 0.9 cm LVPW Systolic Thickness 1.6 cm RV Chamber Size 3.7 cm LVOT Diameter 2.0 cm LV Ejection Fraction 2D Teich 14.6 % LV Ejection Fraction MOD 2C 20.2 % LV Ejection Fraction 2C AL 19.1 % LA Diameter 3.8 cm LA Width 5.1 cm LA Height 6.3 cm RA Width 4.9 cm RA Height 5.8 cm Aorta at Sinotubular Diameter 2.4 cm DOPPLER AV Peak Velocity 97.0 cm/s LVOT Peak Velocity 44.0 cm/s AV Area Cont Eq vti 1.3 cm squared AV Area Cont Eq pk 1.4 cm squared TR Peak Velocity 271.0 cm/s TR Peak Gradient 29.4 mmHg TV Peak E Velocity 48.0 cm/s Right Atrial Pressure 3.0 mmHg Pulmonary Artery Systolic Pressu 32.4 mmHg PV Peak Velocity 72.0 cm/s RV Acceleration Time 0.1 s RV Ejection Time 0.3 s RV AcT/ET 0.4 FINDINGS Left Ventricle Severely increased left ventricular cavity size. Severely decreased left ventricular systolic function. Left ventricular ejection fraction is estimated at 10-15 %. Severe global hypokinesis. Abnormal diastolic function. Rhythm precludes evaluation of diastolic function. Right Ventricle Normal right ventricular size. Moderately decreased right ventricular systolic function. Right Atrium Mildly increased right atrial size. Left Atrium Moderately increased left atrial size. Mitral Valve Thickened mitral valve. Mild mitral valve regurgitation. Aortic Valve Mildly thickened trileaflet aortic valve. No aortic valve stenosis. No aortic valve regurgitation. Tricuspid Valve Structurally normal tricuspid valve. Trace to mild tricuspid valve regurgitation. Pulmonic Valve Structurally normal pulmonic valve. No pulmonary valve stenosis. Trace pulmonary valve regurgitation. Pericardium No pericardial effusion. Aorta Normal-sized aortic root. Normal-sized inferior vena cava with greater than 50% respiratory variation. CONCLUSIONS 1. Severely increased left ventricular cavity size. Severely decreased left ventricular systolic function. Left ventricular ejection fraction is estimated at 10-15 %. Severe global hypokinesis. Abnormal diastolic function. 2. Moderately decreased right ventricular systolic function. 3. Moderately increased left atrial size. 4. Mild mitral valve regurgitation. 5. When compared to previous echocardiogram dated 12/17/2018, left ventricular and right ventricular systolic function seems to have severely decreased. Becky Vega MD (Electronically Signed) Final Date: 14 September 2021 12:16 S
[2021-09-14] MEDS: pantoprazole DR 40 mg Tablet PO (09:32)
[2021-09-14] MEDS: digoxin 125 mcg Tablet PO (09:32)
--- NOTE | 2021-09-14 14:55 | PM.CONSULT ---
Providers/Reason For Consult Consulting Physician/Specialty*: Dr. Vega, cardiology Reason for Consult*: Newly diagnosed congestive heart failure Attending Physician: Jackson Viera Primary Care Provider: Nandini Rivera History of Present Illness History of Present Illness Andrea Jhaveri is a 46 year old male with history of atrial fibrillation diagnosed few back and was placed on aspirin pressure of metoprolol. He saw Dr. Goldberg at the time and his echocardiogram shows normal left ventricular systolic function. He was lost to follow-up and stopped taking his medications. For the past 1-1/2 years he has been experiencing cough productive of phlegm as well as what he describes as lingering effects of possible Covid infection that he had in Dec- January 2020(not diagnosed by testing). He received COVID 19 Moderna 2 dose vaccine 2 months back and since then his symptoms have progressively worsened. For the past 10 days he has noticed leg swelling. He has needed to sleep in his recliner several nights. He also complains of leg swelling, orthopnea and paroxysmal nocturnal dyspnea. He was sent to the hospital with complaints of generalized malaise and shortness of breath and decreased urination. He was found to be in A. fib with RVR and was started on esmolol drip. Esmolol drip because his blood pressure dropped and currently he is only on digoxin. Echocardiogram was done earlier today and he was found to have severely decreased left ventricular systolic function. I have been asked to evaluate and assist in further management. Rapid Covid antigen negative and COVID-19 PCR on 12/04/2020 was negative. He gives family history of CHF in father. He is a non-smoker. He describes his alcoholic habits as moderate. He got about 4 years back and has been drinking more than usual lately he tells me he does not drink beer and maybe 2 drinks of whiskey few nights a week. He denies any sick contacts. Today patient states he feels so much better and was able to lay down flat in bed last night. He has been urinating well. EKG on arrival showed A. fib with RVR. Possible RVH and nonspecific T wave abnormality. Baseline troponin T of 27 at 2 hours 26 and at 6 hours of 20. Liver enzymes elevated with AST 243, ALT 400 on arrival that has since decreased. TSH 1.8. Review of Systems Const: Reports: chills, body aches, malaise and night sweats Eyes: Denies: change in vision ENMT: Denies: throat pain Card: Reports: edema, dyspnea on exertion and orthopnea; Denies: chest pain or pre-syncope Resp: Denies: dyspnea, productive cough, change in phlegm color or hemoptysis GI: Reports: nausea, vomiting, heartburn, diarrhea and belching; Denies: abdominal pain, constipation, hematochezia or melena : Denies: flank pain, difficulty urinating, urinary frequency or hematuria Musc: Denies: back pain, joint swelling or joint redness Skin/Breast: Reports: rash (for about a year interm rash, peripheral photosensitivity); Denies: sores or new lesions Neuro: Denies: headache(s), numbness in extremities, weakness in extremities, dizziness, confusion or seizure-like activity Endo: Denies: polyuria or polydipsia Coleman/Lymph: Denies: easy bleeding or purpura All/Imm: Denies: urticaria, throat swelling or tongue swelling Meds/Allergies Home Medications and Allergies Home Medications Medication Instructions Recorded Confirmed Last Taken Type metoprolol tartrate 25 mg PO BID 09/13/21 09/13/21 09/11/21 22:00 History Allergies Allergy/AdvReac Type Severity Reaction Status Date / Time No Known Allergies Allergy Verified 09/12/21 20:15 Current Medications Current Medications Generic Name Dose Route Start Last Admin Trade Name Freq PRN Reason Stop Dose Admin Cetirizine HCl 10 mg 09/13/21 21:15 09/13/21 23:30 Cetirizine 10 Mg Tablet PO 10 mg Q24H HARDEEP Administration Digoxin 125 mcg 09/14/21 09:00 09/14/21 09:32 Digoxin 125 Mcg Tablet PO 125 mcg DAILY HARDEEP Administration Enoxaparin Sodium 40 mg 09/12/21 19:12 09/13/21 20:00 Enoxaparin 40 Mg/0.4 Ml Syringe SUBCUT 40 mg Q24H HARDEEP Administration Esmolol HCl 2,500 mg in 250 mls @ 0 mls/hr 09/12/21 15:45 09/13/21 19:52 Brevibloc Drip IV Infused .Q0M HARDEEP Titration Protocol Per Protocol Pantoprazole Sodium 40 mg 09/13/21 09:00 09/14/21 09:[address] 40 Mg Tablet PO 40 mg DAILY HARDEEP Administration PFSH Acute PFSH: Medical History Paroxysmal atrial fibrillation with RVR Rash Surgical History No history of previous surgery Family History Mother CAD (coronary artery disease) Cancer Lung disease Social History Smoking and tobacco status: former smoker Alcohol intake: former Substance/Drug Use: current Substance/Drug use type: Marijuana Lives independently: Yes Marital status: Current occupational status: employed Current occupation: [employer] Vitals/I&O/Wt Last Vital Signs Temp 97.2 F L 09/14/21 11:55 Pulse 130 H 09/14/21 11:55 Resp 19 H 09/14/21 11:55 BP 109/93 09/14/21 11:55 Pulse Ox 99 09/14/21 11:55 09/13/21 09/14/21 09/14/21 22:59 06:59 14:59 Intake Total 1090 / 2060.000 0 / 0 Output Total Balance 1090 / 1060.000 -1 / -1 Weight last 48 hrs Weight 223 lb 12.8 oz Weight 227 lb 4.8 oz Weight 200 lb Weight 227 lb Physical Exam Narrative: EXAM NARRATIVE: GENERAL: Averagely built and averagely nourished in no acute distress HEENT: Pupils equal round reactive to light. No pallor or icterus. NECK: Mild JVD, No carotid bruit. CARDIOVASCULAR SYSTEM: S1-S2 irregular with variable intensity. No murmur rubs or gallops. RESPIRATORY SYSTEM: Chest clear to auscultation. No wheezes rhonchi or rubs heard. No use of accessory muscles. ABDOMEN: Soft, nontender and nondistended. Normal bowel sounds present. EXTREMITIES: No cyanosis or clubbing. Trace edema. No signs of chronic venous insufficiency. PHOTOGRAPHIC EDITOR: Patient is alert oriented ?3. No focal neurological deficits. SKIN: Normal turgor and temperature. A&P Assessment and plan (1) Acute CHF: HFrEF (LVEF=10-15%) -Newly diagnosed congestive heart failure -Start on Coreg 3.125 mg twice a day. Lasix 20 mg IV x1 -Plan for cardiac catheterization in morning with Dr. Burns. Risks and benefits were discussed with the patients. Possible complications were reviewed with the patient as well. Status: Acute Qualifiers: Heart failure type: combined systolic and diastolic Qualified Code(s): I50.41 - Acute combined systolic (congestive) and diastolic (congestive) heart failure (2) Paroxysmal atrial fibrillation with RVR: Start on low-dose Coreg. Continue on digoxin. Status: Acute Additional A&P Information Elevated liver enzymes Mild hyponatremia Thank you for allowing me to participate in patient's care. Please feel free to call with questions or concerns. Consult Attestations Time Spent in Patient Care: 16 - 35 minutes (>than 50% of time spent in counselling and/or direct pt care on unit). Coding Level of Care Code Acute Forensic Scientist for [facility] Diagnoses Acute CHF I50.41 Heart failure type: combined systolic and diastolic Paroxysmal atrial fibrillation with RVR I48.0
[2021-09-14 16:22] LABS: Lyme AB Screen <0.90 index
[2021-09-14 16:54] LABS: Coronavirus Test Green County Not Detected
--- NOTE | 2021-09-14 17:48 | PC.NURSE ---
cardiac stress test dc'd due to hida scan yesterday.echo revealed ef of 10-15%.dr solitario consulted..and ordered a cardiac angiogram for tomorrow
[2021-09-14] MEDS: FUROsemide 10 mg/mL SDV 2mL 20 MG IVP (18:10)
[2021-09-14] MEDS: carvedilol 3.125 mg Tablet PO (18:10)
--- NOTE | 2021-09-14 18:47 | PM.PN ---
Subjective Subjective: Interval history: Overall feels much better compared to admission. Heart rate last night was better, but today by around lunchtime becoming elevated again. No chest pain or pressure. No dizziness or lightheadedness. No presyncope. Vitals/I&O/Wt Last Vital Signs Temp 97.2 F L 09/14/21 11:55 Pulse 126 H 09/14/21 16:53 Resp 19 H 09/14/21 16:53 BP 123/90 09/14/21 16:53 Pulse Ox 98 09/14/21 16:53 09/14/21 09/14/21 09/14/21 06:59 14:59 22:59 Intake Total 360 / 360 240 / 600 Output Total Balance 359 / 359 240 / 599 Weight last 48 hrs Weight 101.514 kg Weight 103.102 kg Weight 90.718 kg Physical Exam Narrative: EXAM NARRATIVE: Sitting up at edge of bed. Const: COMMON NORMALS: no acute distress, patient oriented x3 and alert GENERAL APPEARANCE: cooperative and comfortable ORIENTATION/CONSCIOUSNESS: Yes awake HENMT: COMMON NORMALS: oropharynx normal TYMPANIC MEMBRANE: TM abnormal TM laterality: right Details: bulging Neck/C-Spine: COMMON NORMALS: no JVD Resp: COMMON NORMALS: normal respiratory effort and clear to auscultation bilaterally AUSCULTATION: clear to auscultation bilaterally Cardio: COMMON NORMALS: no JVD, regular rhythm, S1 normal heart sound present, S2 normal heart sound present and No murmurs present (Cardio) RATE: tachycardic RHYTHM: regular rhythm and abnormal rhythm irregularly irregular HEART SOUNDS: S1 normal heart sound present and S2 normal heart sound present GI: COMMON NORMALS: Normal to inspection, nondistended, normoactive bowel sounds present, Soft to palpation and non-tender PALPATION: Yes Soft to palpation Extremity: COMMON NORMALS: no joint enlargement GENERAL: Yes edema (Improving, down to 1-2+) Neuro: COMMON NORMALS: patient oriented x3 and moves all extremities SENSORIUM/ORIENTATION: Yes alert Skin: COMMON NORMALS: no rashes or lesions noted GENERAL SKIN EXAM: no rashes or lesions noted OTHER: Healing excoriations lower shins Data : 09/14/21 04:20 09/14/21 04:20 A&P Assessment and plan (1) Acute CHF: Echocardiogram obtained today. Ejection fraction low, 10-15%. Appreciate cardiology consultation with regards to assessment of new cardiomyopathy with acute CHF, difficult to control A. fib with RVR. Plans for additional assessment with coronary angiography to exclude significant coronary artery disease. Repeated additional Lasix today. Peripheral edema, orthopnea. Denies leg edema prior to that. Cardiomegaly noted on chest x-ray. Elevated BNP. New combined systolic and diastolic and biventricular right and left congestive heart failure. Discussed with him concern for right heart failure given peripheral edema, causing the abnormal liver function parameters. Denies any chest pain or pressure. No ischemic changes on EKG. Reports palpitations going on for probably 8 months, and so discussed with him possibility of tachycardia induced cardiomyopathy following A. fib with RVR. States that he has not seen a doctor for a long time and was finally convinced by his family/friends to seek medical attention. Discussed with him with history of smoking, history of CAD in his family, would benefit from stress testing as well at some point. States he has not paid much attention to his heart rate/tachycardia given he is always on the go, and has not had any symptoms. Status: Acute Qualifiers: Heart failure type: combined systolic and diastolic Qualified Code(s): I50.41 - Acute combined systolic (congestive) and diastolic (congestive) heart failure (2) Paroxysmal atrial fibrillation with RVR: By afternoon/evening heart rates again worse, 120s. Additional 0.125 mg IV digoxin push x1, continue p.o. digoxin. Aspirin. Appreciate cardiology recommendations. Started on carvedilol. Prior to admission had not done well with metoprolol. Continue systolic and diastolic CHF. EF 10-15%. Pending additional evaluation. Normal TSH. Status: Acute (3) Malaise: Mostly resolved. Reports malaise, chills, body aches, dyspnea, indigestion, nausea, vomiting, eructation, diarrhea last day or 2. Afebrile here, but with leukocytosis. Doing okay on room air. Has previously received COVID-19 vaccination with tumor during her shots. COVID-19 testing requested. Fatigue better, may have been related to beta-blockade, CHF exacerbation fluid overload. Normal TSH. Near normal CRP. Monospot negative. Tick panel pending. Additional assessment of acute CHF as above. Abnormal liver parameters improving, likely related to acute CHF. Status: Acute (4) Hyperbilirubinemia: Resolving. Likely related to acute CHF. Gallbladder wall thickening ultrasound. HIDA scan unremarkable. No sign of cholecystitis. No right upper quadrant pain. Improving with diuresis. Much less likely infectious cause. Status: Acute (5) Transaminitis: Improving with diuresis. Status: Acute (6) Hyperkalemia: Low potassium diet. Reassess potassium level. Status: Acute (7) Nausea and vomiting: PPI, Zofran as needed. Status: Acute (8) Leukocytosis: Resolving. Entirely clear etiology, possibly secondary to recent nausea and vomiting. No suggestion of focal pneumonia on chest x-ray. COVID-19 testing negative. Unlikely biliary infection. Negative Monospot. Tick panel pending. Status: Acute (9) Ear fullness: Has been having some nasal congestion. We will add antihistamine for symptoms. Left ear fullness, some mild bulging of the left tympanic membrane, I do not see effusion, bleeding, erythema, normal EAM. Monospot negative. Status: Acute Additional A&P Information Prior history of rashes/photosensitivity after viral infection (he thinks possible COVID) in 2020. Denies oral or genital lesions. No recent problems in last several months. Attestations Medical Necessity Statement*: Continue admission for assessment management of acute CHF, optimization of control of A. fib with RVR. Coding Level of Care Code Acute Nursing Care Attendant for Chg Fwd Diagnoses Acute CHF I50.41 Heart failure type: combined systolic and diastolic Paroxysmal atrial fibrillation with RVR I48.0 Malaise R53.81 Hyperbilirubinemia E80.6 Transaminitis R74.01 Hyperkalemia E87.5 Nausea and vomiting R11.2 Leukocytosis D72.829 Ear fullness H93.8X9
[2021-09-14] MEDS: enoxaparin 40 mg/0.4 mL Syringe SUBCUT (19:37)
[2021-09-14] MEDS: digoxin 250 mcg/ml INJ 2 mL 125 MCG IVP (19:37)
[2021-09-14] MEDS: cetirizine 10 mg Tablet PO (19:37)
[2021-09-15] VITALS (13 sets, daily range): BP systolic 98–136; BP diastolic 65–89; PULSE 94–120; RESP 15–22; TEMP 36.4–36.5; O2SAT 96–98
[2021-09-15 05:03] LABS: Basophils # 0.1 10^3/uL (0.0-0.1); Basophils % 1.1 %; Eosinophils # 0.2 10^3/uL (0.0-0.8); Eosinophils % 2.6 %; Hematocrit 46.4 % (42.0-52.0); Lymphocytes # 1.8 10^3/uL (0.8-4.8); Lymphocytes % 21.9 %; Mean Corpuscular HGB Conc 32.3 g/dL (30.0-36.0); Mean Corpuscular Hemoglobin 29.8 pg (28.0-34.0); Mean Corpuscular Volume 92.1 fl (80-94); Mean Platelet Volume 10.1 fL (7.4-10.4); Monocytes # 1.2 10^3/uL (0.2-0.9); Nucleated Red Blood Cells % 0 %; Platelet Count 242 10^3/cmm (130-400); Red Blood Count 5.04 10^6/uL (4.1-5.3); Red Cell Distribution Width 14.2 % (12.1-15.1)
[2021-09-15 05:43] LABS: Alanine Aminotransferase 209 U/L (0-41); Albumin Level 3.2 g/dL (3.5-5.2); Alkaline Phosphatase 111 IU/L (40-130); Anion Gap 14.1 (5-19); Aspartate Amino Transferase 69 U/L (0-40); Blood Urea Nitrogen 20 mg/dL (6-20); Calcium 8.4 mg/dL (8.5-10.5); Carbon Dioxide 27 mmol/L (22-29); Chloride 102 mmol/L (98-107); Globulin 2.4 g/dL (1.3-4.6); Glomerular Filtration Rate 80.1 mL/min (90-130); Glucose 93 mg/dL (65-115); Magnesium 2.3 mg/dL (1.7-2.3); Osmolality Calculated 290 mOsm/kg (285-295); Potassium 4.1 mmol/L (3.5-5.1); Sodium 139 mmol/L (136-145); Total Protein 5.6 g/dL (6.6-8.7)
--- NOTE | 2021-09-15 05:46 | PC.NURSE ---
At beginning of shift, patient's heart rate ranging 130s. Patient's heart rate is now ranging 90s.
[2021-09-15] MEDS: carvedilol 3.125 mg Tablet PO (08:40)
[2021-09-15] MEDS: aspirin 325 mg Tablet PO (08:40)
[2021-09-15] MEDS: digoxin 125 mcg Tablet PO (08:40)
[2021-09-15] MEDS: pantoprazole DR 40 mg Tablet PO (08:40)
[2021-09-15] MEDS: diphenhydrAMINE 50 mg Capsule PO (08:43)
--- NOTE | 2021-09-15 10:19 | XACV_ITS ---
Exam Room: [facility] Ht: 183 cm Wt: 97 kg BSA: 2.23 m2 Gender: Male : 1975 Exam Priority: Routine Procedure(s): Procedure Description: Diagnostic procedure Procedure Description: Coronary Angiography Diagnostic Cath Status: Urgent Diagnostic Findings * No disease noted in the Left Main, Left Anterior Descending, Right, or Circumflex coronary arteries. * Coronary angiography shows right dominance. Conclusions 1. No disease noted in the Left Main, Left Anterior Descending, Right, or Circumflex coronary arteries. Recommendations * Continue current medical management and risk factor modification. Pressures Phase:Rest AO : 103 / 83 ( 90 ) @ 8:58:00 AM 97 / 80 ( 86 ) @ 9:02:00 AM Clinical Evaluation EBL: 5mL-10mL Procedural Details Procedure Consent Obtained. Pre-Procedure Time Out. Identified patient by full name and date of as verbalized by the patient/guarantor. Does the consent match the physician's order: Yes. Accurate & Complete Informed Consent: Yes. Inpatient/Outpatient History & Physical on Chart: Yes. If H&P is completed, is and addenduem needed: Yes; If yes, is the addendum complete: Yes. Visualize and Verify Site with Patient/Guarantor: N/A. Relevant Radiology Images available: N/A. Pre-op teaching completed and patient verbalized understanding. The risks, benefits, and alternatives of sedation and/or procedure were discussed by physician. The patient agrees to continue. Procedure started. [facility] Clinical Fraility Score: 3: Managing Well. Insurance Verify Rep Indications: Cardiomyopathy. Chest Pain Symptom Assessment: Atypical Angina. Correct patient, site and procedure confirmed by cath team. Current diagnosis: Cardiomyopathy, New onset heart failure. PERRLA. Strong, equal hand asphalt distributor tender bilaterally. Lungs clear x 5 lobes. IV Site on Arrival: 20 gauge in the right forearm. IV Fluids: 0.9% NaCl at KVO. 0 mL infused prior to microbiology lab manager. Pre Procedural Pulses: bilateral radial was 3+. Oxygen started at 2liters/min via nasal canula. right radial was prepped with chloroprep then draped in the usual sterile fashion. Baseline sample Acquired. HR: 86 BPM. Physician notified. Physician arrived. Physician scrubbed in. Immediate Pre-Procedure Time Out. Correct Patient: Yes; Correct Procedure: Yes; Correct Site: Yes; Correct Patient Position: Yes; Correct Supplies: Yes; Dried Flammable Prep: Yes; Blood Products Available: N/A;. Admit Source: In Patient. Lidocaine 1% infiltrated to the right radial. Dr Vega scrubbed in with Dr Burns to perfom procedure alongside. Arterial access obtained. A 5 czech TIG catheter in over wire. Multiple views taken of left coronary artery. Catheter redirected to the RCA. Multiple views taken of right coronary artery. Catheter out. A TR Band was successful obtaining hemostatsis at the Right Radial artery insertion site. Post Procedure: Pulses reassessed and unchanged. PERRLA. Strong, equal hand asphalt distributor tender bilaterally. No VTE prophylaxis required. Medication's Wasted: Lidocaine 1% = 18 mL. Medication's Wasted: Nitro = 49.8 mg. Medication's Wasted: Heparin = 1000 u. Total IV fluids: 42 mL. Post-op diagnosis: Normal Coronaries, Non ischemic cardiomyopathy. Complications: none. Estimated blood loss: 5mL-10mL. Procedure completed. Patient transferred by wheelchair to first floor. Vital chart was stopped. Access Site Site: Right Radial artery Sheath Size: 6 Fr Hemostasis Method: TR Band Hemostasis Success: Successful Procedure Medications Start: 10:43 AM Stop: 10:43 AM Medication: Versed Amount: 1 mg Route: I.V. Start: 10:43 AM Stop: 10:43 AM Medication: Fentanyl Amount: 50 mcg Route: I.V. Start: 10:54 AM Stop: 10:54 AM Medication: Nitrogylcerin Amount: 200 mcg Route: I.A. I, the attending physician, have reviewed and verified all procedure medications. Yes, all medications given per verbal order History/Risk Factors Hypertension: No Dyslipidemia: No Peripheral Arterial Disease (PAD): No Myocardial Infarction (NM): No Obesity: No Prior Interventions PCI: No CABG: No Valve Surgery: No Report Signatures Finalized by Cosme Burns MD on 09/15/2021 11:12 AM
--- NOTE | 2021-09-15 10:38 | W.PM.OPSUD ---
Surgery/Procedure H&P Update DATE OF PROCEDURE: September 15, 2021 DATE H&P PERFORMED: 09/14/21 H&P UPDATE INFORMATION: I have reviewed H&P completed within last 30 days, I have examined patient prior to procedure and No changes to prior documentation PREOP DIAGNOSIS: New onset of heart failure, severe LV dysfunction PLANNED PROCEDURE: Operation Date: 09/15/21 09:00 Proposed Procedures p Cardiac Catheterization(Left) - Cosme Burns MD PATIENT REASSESSED PRIOR TO SEDATION, WITH NO CHANGE NOTED: Yes PHYSICAL EXAM: alert, oriented x 3, clear to auscultation bilaterally and regular rate & rhythm AIRWAY EVAL/ANESTHESIA PLAN: ASA II and Risks, benefits & alternatives of sedation and/or procedure discussed ADDITIONAL INFORMATION: I have personally explained patient all risk benefit and alternative for the procedure. I have explained the patient's risk for contrast-induced nephropathy stroke major minor surgery vascular injury such as hematoma pseudoaneurysm. Patient is a candidate for DAPT. He agrees to it and would like to proceed with it.
[2021-09-15] MEDS: lisinopril 2.5 mg Tablet PO (15:47)
[2021-09-15] MEDS: carvedilol 6.25 mg Tablet PO (18:01)
[2021-09-15] MEDS: cetirizine 10 mg Tablet PO (20:15)
[2021-09-15] MEDS: enoxaparin 40 mg/0.4 mL Syringe SUBCUT (20:15)
--- NOTE | 2021-09-15 20:20 | PC.NURSE ---
Shift Note Frequent safety and comfort rounds continue. Orders and/or nursing care completed as indicated. Patient monitored for response to intervention and treatment(s). Education provided includes post angiogram home care and activity restrictions, afib, digoxin, coreg. Patient and/or senior human resources representative verbalizes understanding. Will continue to monitor.
--- NOTE | 2021-09-15 22:02 | PM.PN ---
Subjective Subjective: Interval history: Denies chest pain or pressure. Overall feeling better. Denies any complaints following cardiac cath today. Heart rate overall better than last night with heart rates which were up into 140s. Vitals/I&O/Wt Last Vital Signs Temp 97.7 F 09/15/21 16:00 Pulse 94 09/15/21 20:00 Resp 18 09/15/21 20:00 BP 136/65 09/15/21 20:00 Pulse Ox 98 09/15/21 20:00 09/15/21 09/15/21 09/15/21 06:59 14:59 22:59 Intake Total 720 / 720 360 / 1080 Output Total 1100 / 2351 Balance -1100 / -1751 720 / 720 360 / 1080 Weight last 48 hrs Weight 96.751 kg Weight 101.514 kg Physical Exam Narrative: EXAM NARRATIVE: Sitting up at edge of bed. Const: COMMON NORMALS: no acute distress, patient oriented x3 and alert GENERAL APPEARANCE: cooperative and comfortable ORIENTATION/CONSCIOUSNESS: Yes awake HENMT: COMMON NORMALS: oropharynx normal TYMPANIC MEMBRANE: TM abnormal TM laterality: right Details: bulging Neck/C-Spine: COMMON NORMALS: no JVD Resp: COMMON NORMALS: normal respiratory effort and clear to auscultation bilaterally AUSCULTATION: clear to auscultation bilaterally Cardio: COMMON NORMALS: no JVD, regular rhythm, S1 normal heart sound present, S2 normal heart sound present and No murmurs present (Cardio) RATE: tachycardic RHYTHM: regular rhythm and abnormal rhythm irregularly irregular HEART SOUNDS: S1 normal heart sound present and S2 normal heart sound present GI: COMMON NORMALS: Normal to inspection, nondistended, normoactive bowel sounds present, Soft to palpation and non-tender PALPATION: Yes Soft to palpation Extremity: COMMON NORMALS: no joint enlargement GENERAL: Yes edema (Improving, down to 1+) Neuro: COMMON NORMALS: patient oriented x3 and moves all extremities SENSORIUM/ORIENTATION: Yes alert Skin: COMMON NORMALS: no rashes or lesions noted GENERAL SKIN EXAM: no rashes or lesions noted OTHER: Healing excoriations lower shins Data : 09/15/21 04:02 09/15/21 04:02 A&P Assessment and plan (1) Paroxysmal atrial fibrillation with RVR: Continue optimization of control of A. fib with RVR. Last night heart rate still up as high as 140s. Given additional dose 0.125 mg digoxin. Was started on carvedilol. Continue p.o. digoxin. Heart rate appears to be gradually improving. CHF symptoms better. As per cardiology recommendation cardiac monitoring overnight. Aspirin. Prior to admission had not done well with metoprolol. Continue systolic and diastolic CHF. EF 10-15%. Pending additional evaluation. Normal TSH. Status: Acute (2) Acute CHF: Status post coronary angiography today. No obstructive coronary artery disease noted. Appreciate cardiology recommendations. Ejection fraction low, 10-15%. CHF symptoms much better. Continue optimization of control of A. fib with RVR. Should abstain from any alcohol. New combined systolic and diastolic and biventricular right and left congestive heart failure. Status: Acute Qualifiers: Heart failure type: combined systolic and diastolic Qualified Code(s): I50.41 - Acute combined systolic (congestive) and diastolic (congestive) heart failure (3) Malaise: resolved. Reports malaise, chills, body aches, dyspnea, indigestion, nausea, vomiting, eructation, diarrhea last day or 2. Afebrile here, but with leukocytosis. Doing okay on room air. Has previously received COVID-19 vaccination with tumor during her shots. COVID-19 testing requested. Fatigue better, may have been related to beta-blockade, CHF exacerbation fluid overload. Normal TSH. Near normal CRP. Monospot negative. Tick panel pending. Additional assessment of acute CHF as above. Abnormal liver parameters improving, likely related to acute CHF. Status: Acute (4) Hyperbilirubinemia: Resolving. Likely related to acute CHF. Gallbladder wall thickening ultrasound. HIDA scan unremarkable. No sign of cholecystitis. No right upper quadrant pain. Improving with diuresis. Much less likely infectious cause. Status: Acute (5) Transaminitis: Continuing to improve. Status: Acute (6) Hyperkalemia: Low potassium diet. Reassess potassium level. Status: Acute (7) Nausea and vomiting: PPI, Zofran as needed. Status: Acute (8) Leukocytosis: Resolved. Entirely clear etiology, possibly secondary to recent nausea and vomiting. No suggestion of focal pneumonia on chest x-ray. COVID-19 testing negative. Unlikely biliary infection. Negative Monospot. Tick panel pending. Status: Acute (9) Ear fullness: Has been having some nasal congestion. We will add antihistamine for symptoms. Left ear fullness, some mild bulging of the left tympanic membrane, I do not see effusion, bleeding, erythema, normal EAM. Monospot negative. Status: Acute Additional A&P Information Prior history of rashes/photosensitivity after viral infection (he thinks possible COVID) in 2020. Denies oral or genital lesions. No recent problems in last several months. Attestations Medical Necessity Statement*: Continue admission for optimization of control of A. fib with RVR. Coding Level of Care Code Acute Field Reimbursement Manager for Chg Fwd Diagnoses Paroxysmal atrial fibrillation with RVR I48.0 Acute CHF I50.41 Heart failure type: combined systolic and diastolic Malaise R53.81 Hyperbilirubinemia E80.6 Transaminitis R74.01 Hyperkalemia E87.5 Nausea and vomiting R11.2 Leukocytosis D72.829 Ear fullness H93.8X9
[2021-09-16] VITALS (7 sets, daily range): BP systolic 107–112; BP diastolic 73–86; PULSE 98–108; RESP 16–18; TEMP 36.4–36.8; O2SAT 95–97
[2021-09-16 06:30] LABS: Basophils # 0.1 10^3/uL (0.0-0.1); Basophils % 0.9 %; Eosinophils # 0.4 10^3/uL (0.0-0.8); Eosinophils % 4.1 %; Hematocrit 46.6 % (42.0-52.0); Hemoglobin 15.1 g/dL (11.7-16.6); Lymphocytes # 1.9 10^3/uL (0.8-4.8); Lymphocytes % 22.1 %; Mean Corpuscular HGB Conc 32.4 g/dL (30.0-36.0); Mean Corpuscular Hemoglobin 30.2 pg (28.0-34.0); Mean Corpuscular Volume 93.2 fl (80-94); Mean Platelet Volume 9.6 fL (7.4-10.4); Monocytes # 1.3 10^3/uL (0.2-0.9); Monocytes % 15.6 %; Neutrophils # 4.89 10^3/uL (1.8-7.7); Neutrophils % 56.8 %; Nucleated Red Blood Cells % 0 %; Platelet Count 230 10^3/cmm (130-400); Red Cell Distribution Width 14.3 % (12.1-15.1); White Blood Count 8.6 10^3/uL (4.0-10.0)
[2021-09-16 06:56] LABS: Alanine Aminotransferase 159 U/L (0-41); Albumin Level 3.2 g/dL (3.5-5.2); Alkaline Phosphatase 110 IU/L (40-130); Aspartate Amino Transferase 54 U/L (0-40); Blood Urea Nitrogen 16 mg/dL (6-20); Calcium 8.1 mg/dL (8.5-10.5); Carbon Dioxide 28 mmol/L (22-29); Chloride 102 mmol/L (98-107); Globulin 2.4 g/dL (1.3-4.6); Glomerular Filtration Rate 90.4 mL/min (90-130); Glucose 117 mg/dL (65-115); Osmolality Calculated 290 mOsm/kg (285-295); Sodium 139 mmol/L (136-145); Total Bilirubin 0.7 mg/dL (0.15-1.2); Total Protein 5.6 g/dL (6.6-8.7)
[2021-09-16 06:57] LABS: Anion Gap 13.5 (5-19); Potassium 4.5 mmol/L (3.5-5.1)
--- NOTE | 2021-09-16 08:01 | P.PN_ITS ---
Subjective Subjective: Interval history: s/p C. He feels well. Medications: Reviewed: Yes Vitals/I&O/Wt Last Vital Signs Temp 97.8 F 09/16/21 03:38 Pulse 103 H 09/16/21 03:58 Resp 18 09/16/21 03:38 BP 107/73 09/16/21 03:38 Pulse Ox 97 09/16/21 03:38 09/15/21 09/16/21 09/16/21 22:59 06:59 14:59 Intake Total 360 / 1080 600 / 1680 Output Total 550 / 550 Balance 360 / 1080 50 / 1130 Weight last 48 hrs Weight 217 lb Weight 213 lb 4.8 oz Physical Exam Narrative: EXAM NARRATIVE: GENERAL: Averagely built and averagely nourished in no acute distress HEENT: Pupils equal round reactive to light. No pallor or icterus. NECK: Mild JVD, No carotid bruit. CARDIOVASCULAR SYSTEM: S1-S2 irregular with variable intensity. No murmur rubs or gallops. RESPIRATORY SYSTEM: Chest clear to auscultation. No wheezes rhonchi or rubs heard. No use of accessory muscles. ABDOMEN: Soft, nontender and nondistended. Normal bowel sounds present. EXTREMITIES: No cyanosis or clubbing. Trace edema. No signs of chronic venous insufficiency. Right wrist with no significanr bruising or hematoma SOFTWARE SALES: Patient is alert oriented ?3. No focal neurological deficits. SKIN: Normal turgor and temperature. Data : 09/16/21 05:52 09/16/21 05:52 A&P Assessment and plan (1) Acute CHF: Non ischemic dilated cardiomyopathy; HFrEF (LVEF=10-15%) -Newly diagnosed congestive heart failure -increase Coreg to 6.25 mg BID twice a day. started on low dose lisinopril and aldactone. -Normal coronaries on cardiac catheterization . -low salt diet and fluid restriction discussed with the patient. -f/u with Marii in 1 week and with me in 1 month -declined life vest. Status: Acute Qualifiers: Heart failure type: combined systolic and diastolic Qualified Code(s): I50.41 - Acute combined systolic (congestive) and diastolic (congestive) heart failure (2) Paroxysmal atrial fibrillation with RVR: Started on low-dose Coreg. Continue on digoxin. -[id number] -continue ASA Status: Acute Additional A&P Information Elevated liver enzymes Mild hyponatremia Thank you for allowing me to participate in patient's care. Please feel free to call with questions or concerns. Attestations Medical Necessity Statement*: stable to be discharged Time Spent in Patient Care: 16 - 35 minutes (>than 50% of time spent in counselling and/or direct pt care on unit) . Coding Level of Care Code Acute Ground Operations Superintendent for Antonette Rodas Diagnoses Acute CHF I50.41 Heart failure type: combined systolic and diastolic Paroxysmal atrial fibrillation with RVR I48.0
[2021-09-16] MEDS: digoxin 125 mcg Tablet PO (08:46)
[2021-09-16] MEDS: carvedilol 6.25 mg Tablet PO (08:47)
[2021-09-16] MEDS: pantoprazole DR 40 mg Tablet PO (08:47)
[2021-09-16] MEDS: aspirin 325 mg Tablet PO (08:47)
[2021-09-16] MEDS: spironolactone 25 mg Tablet 12.5 MG PO (08:47)
[2021-09-16] MEDS: lisinopril 2.5 mg Tablet PO (08:47)
--- NOTE | 2021-09-16 12:53 | PM.DCS ---
Discharge Providers Date of Admission: 09/12/21 18:33 Date of Discharge: September 16, 2021 Attending Provider at Admission: Jackson Viera Attending Provider at Discharge: Jackson Viera Primary Care Provider: Nandini Rivera Diagnoses at Discharge Discharge Diagnosis (1) Acute CHF: Status: Acute Qualifiers: Heart failure type: combined systolic and diastolic Qualified Code(s): I50.41 - Acute combined systolic (congestive) and diastolic (congestive) heart failure (2) Paroxysmal atrial fibrillation with RVR: Status: Acute (3) Hyperbilirubinemia: Status: Acute (4) Transaminitis: Status: Acute (5) Ear fullness: Status: Acute (6) Hyperkalemia: Status: Acute (7) Nausea and vomiting: Status: Acute (8) Malaise: Status: Acute (9) Leukocytosis: Status: Acute Reason for Visit [facility] Hospital Course Very pleasant 46-year-old gentleman with history of paroxysmal atrial fibrillation, recently restarted on metoprolol, and recently dose increased with primary provider due to persistent tachycardia noted incidentally, but recently with progressive fatigue. Accompanied with lower extremity edema, orthopnea. Complaining also of abdominal distention, very poor appetite, nausea, vomiting, eructation, and with that in the day preceding hospitalization chills, sweats, headache. He has had irregular heartbeat he states for a while, with tachycardia, but for the most part did not have symptoms until decompensated he recently. On presentation noted in new heart failure, A. fib with RVR, heart rates in 140s. Did not respond to the doubling of the metoprolol, which states made him feel even worse. Was started on esmolol drip. Subsequently loaded with digoxin, weaned off esmolol. On presentation with also hyperbilirubinemia, transaminitis, which were assessed by ultrasound, with noted moderate gallbladder wall thickening. Subsequently assessed by HIDA scan, not suggestive of cholecystitis. Normal study. Suspect that the likely due to acute CHF with left and right heart failure. Acute hepatitis panel negative. Tick panel requested and is pending. Please follow-up. He was started on gentle diuresis with Lasix. His nausea vomiting resolved fairly quickly, with also improvement in lower extremity edema which has continued with additional doses of diuretic. With diuresis hyperbilirubinemia resolved, transaminitis has been improving. Echocardiography found to have ejection fraction of 10-50% with new left and right CHF. Was assessed by cardiology. Underwent coronary angiography which showed no obstructive disease. Doing well post cath. Additional medication adjustment performed by cardiology with addition of carvedilol, low-dose lisinopril and spironolactone. He is started on aspirin to reduce stroke risk with atrial fibrillation. His heart rates overall have improved, and target of below 110 bpm was reinforced with him. He understands to monitor his heart rates closely given he is otherwise not symptomatic. All his other symptoms have resolved, he is feeling very well, best he has felt in months, with no trouble eating, ambulating. He is discharged home with request for follow-up with cardiology in office. Of note initially also complaining of some left ear discomfort which has resolved. Mild bulging noted in the tympanic membrane. Please follow-up symptoms for complete resolution. COVID-19 was assessed during admission and PCR was negative. Monospot negative. No signs of exudative pharyngitis or tonsillitis noted on exam. Remained afebrile and without signs of ongoing infection. Physical Exam Narrative: EXAM NARRATIVE: Sitting up at edge of bed. Const: COMMON NORMALS: no acute distress, patient oriented x3 and alert GENERAL APPEARANCE: cooperative and comfortable ORIENTATION/CONSCIOUSNESS: Yes awake HENMT: COMMON NORMALS: oropharynx normal TYMPANIC MEMBRANE: TM abnormal TM laterality: right Details: bulging Neck/C-Spine: COMMON NORMALS: no JVD Resp: COMMON NORMALS: normal respiratory effort and clear to auscultation bilaterally AUSCULTATION: clear to auscultation bilaterally Cardio: COMMON NORMALS: no JVD, regular rhythm, S1 normal heart sound present, S2 normal heart sound present and No murmurs present (Cardio) RATE: tachycardic RHYTHM: regular rhythm and abnormal rhythm irregularly irregular HEART SOUNDS: S1 normal heart sound present and S2 normal heart sound present GI: COMMON NORMALS: Normal to inspection, nondistended, normoactive bowel sounds present, Soft to palpation and non-tender PALPATION: Yes Soft to palpation Extremity: COMMON NORMALS: no joint enlargement GENERAL: Yes edema (Resolving, now trace) Neuro: COMMON NORMALS: patient oriented x3 and moves all extremities SENSORIUM/ORIENTATION: Yes alert Skin: COMMON NORMALS: no rashes or lesions noted GENERAL SKIN EXAM: no rashes or lesions noted OTHER: Healing excoriations lower shins Discharge Data Data Completed and Pending: Completed Studies During Hospitalization Category Date Time Status DELIVERY ASSISTANT request for service Routin e Exams 09/15/21 10:19 Completed XR chest 1V gladis ble [id number] Stat Exams 09/12/21 15:39 Completed NM hepatobiliary w phar* [id number] Rout ine Nuc Med 09/13/21 19:12 Completed CV. echo complete * [id number] Routine Ultrasound 09/14/21 06:00 Completed US gall bladder 7 [id number] Stat Ultrasound 09/12/21 17:13 Completed Pending at discharge Category Date Time Status Sestamibi Stress Test Request Routi ne Exams 09/14/21 09:00 Stop Req Tick Panel Routin e Lab 09/12/21 22:35 Results Labs from last 24 hours 09/16/21 09/16/21 05:52 05:52 WBC 8.6 RBC 5.00 Hgb 15.1 Hct 46.6 MCV 93.2 MCH 30.2 MCHC 32.4 RDW 14.3 Plt Count 230 MPV 9.6 Neut % (Auto) 56.8 Lymph % (Auto) 22.1 Darke % (Auto) 15.6 Eos % (Auto) 4.1 Baso % (Auto) 0.9 Neut # (Auto) 4.89 Lymph # (Auto) 1.9 Darke # (Auto) 1.3 H Eos # (Auto) 0.4 Baso # (Auto) 0.1 Nucleated RBC % (a uto) 0 Nucleated RBCs # 0.0 Sodium 139 Potassium 4.5 Chloride 102 Carbon Dioxide 28 Anion Gap 13.5 BUN 16 Creatinine 0.9 GFR Calculation 90.4 Glucose 117 H Calculated Osmolal ity 290 Calcium 8.1 L Total Bilirubin 0.7 AST 54 H ALT 159 H Alkaline Phosphata se 110 Total Protein 5.6 L Albumin 3.2 L Globulin 2.4 Vitals: Last Vital Signs Temp 98.3 F 09/16/21 08:00 Pulse 108 H 09/16/21 08:46 Resp 16 09/16/21 08:00 BP 107/73 09/16/21 03:38 Pulse Ox 97 09/16/21 08:00 Discharge Plan Discharge Patient Disposition: Home Condition: Stable Prescriptions: New lisinopril 2.5 mg Tablet 2.5 mg PO DAILY Qty: 90 RF: 0 furosemide [Lasix] 20 mg tablet 20 mg PO DAILY PRN (Reason: edema) Qty: 90 RF: 0 digoxin 125 mcg (0.125 mg) Tablet 125 mcg PO DAILY Qty: 90 RF: 0 aspirin 325 mg Tablet 325 mg PO DAILY Qty: 90 RF: 0 carvedilol 6.25 mg Tablet 6.25 mg PO BID Qty: 180 RF: 0 spironolactone 25 mg Tablet 12.5 mg PO DAILY Qty: 90 RF: 0 Discontinued metoprolol tartrate 25 mg Tablet 25 mg PO BID RF: 0 No Action omeprazole 20 mg capsule,delayed release(DR/EC) 20 mg PO DAILY RF: 0 doxycycline hyclate 100 mg capsule 100 mg PO BID RF: 0 Discharge Orders: Discharge Order (Routine); Ordered 09/16/21 Ordered By: Jackson Viera Referrals: Marii Godfrey FNP [Nurse Practitioner] - 1 week ([facility] will contact you to schedule an follow-up appointment with Marii Godfrey in 1 week. If you havn't heard from them by Friday. Please [phone]) Nandini Rivera PA [Primary Care Provider] - 4-7 days ([facility] will contact you to schedule an follow-up appointment in 4 to 7 days. If you haven't heard from them by Friday. Please call ) Becky Vega MD [Physician] - 1 month ([facility] will contact you to schedule an follow-up appointment with Dr. Vega in 1 month. If you havrn't heard from them by . Please call ) Discharge Diet: As Directed, Cardiac and Low Salt Discharge Activity: Increase activity as tolerated Patient Instructions: Spironolactone (By mouth), Digoxin (By mouth), Lisinopril (By mouth), Aspirin (By mouth), Carvedilol (By mouth), Heart Failure (GEN), A-fib (Atrial Fibrillation) (GEN), Low-Sodium Diet (GEN), Fluid Restriction (GEN), Left-sided and Right-sided Heart Failure (GEN), Opioid Safety, Post Angiogram Home Care Instructions Activity Restrictions/Additional Instructions: Please maintain fluid restriction of 1500 mL/day. Maintain low sodium diet. Avoid alcohol. Please monitor your heart rates closely by counting beats either by tracking her pulse or by a monitor, but count over a minute or 30 seconds and multiply by 2 to get per minute rate. At rest your heart rate should stay below 110. Please follow-up with your primary doctor in case discomfort in your left ear recurs. Discussed with him referral to ear nose throat doctor in case of persistent symptoms. Please have your primary doctor follow-up on your kidney function and potassium level in 3-4 days. Your potassium was mildly elevated when you came in, improved, however, in case increasing again, lisinopril and spironolactone may need to be discontinued as these medications can elevate level of potassium. Please have your primary doctor follow-up on your liver function which has been improving. Avoid any NSAIDs like ibuprofen, Aleve, etc. Discharge Attestations Time Spent in Discharge Care*: greater than 30 min Quality Metrics Clinical Quality Measures During this hospital stay, did patient experience: None Coding Level of Care Code Acute Chg [facility] note Diagnoses Acute CHF I50.41 Heart failure type: combined systolic and diastolic Paroxysmal atrial fibrillation with RVR I48.0 Hyperbilirubinemia E80.6 Transaminitis R74.01 Ear fullness H93.8X9 Hyperkalemia E87.5 Nausea and vomiting R11.2 Malaise R53.81 Leukocytosis D72.829
--- NOTE | 2021-09-16 13:02 | PC.NURSE ---
BRIGITTE JEWELL INFORMED CASE BEST THAT PT STATED HE DOES NOT WANT TO SEE HIS PCP AGAIN. I TOLD PT THAT I WILL LET THE CASE MGT KNOW AND WE CAN ASSIST HIM ON FINDING A NEW DIFFERENT ONE.
--- NOTE | 2021-09-16 14:03 | PC.NURSE ---
Discharge Note Patient discharged to home-self care via ambulation accompanied by self. Discharge instructions reviewed with patient and/or telesales representative. Mobile pharmacy medications and/or prescriptions provided. Belongings/home medications returned. Pt was given coreg 6.25 to take tonight. pt appreciative. 0700 am-Pt ambulated down hallways to vending machine and to shower. He denies any increasing SOB. Pt tolerated activity well.
[2021-09-17 17:08] LABS: E. Chaffeensis AB IGG <1:64; E. Chaffeensis AB IGM <1:20
[2021-09-19 15:26] LABS: RMSF IGG DETECTED; RMSF IGM NOT DETECTED
== END 2021-09-16 13:30 | disposition home or self-care (01) | DRG 287 ==
LOC: ER 17:29 → CSU 18:33
PROVIDERS: Internal Medicine Cardiovascular Disease; Admitting Provider Internal Medicine; Emergency Provider Family Medicine; PCP Physician Assistant; Visit Provider Internal Medicine
PROC: B2111ZZ Fluoroscopy of Multiple Coronary Arteries using Low Osmolar Contrast (ICD-10-PCS; principal; 2021-09-15 09:00)
DX: I50.41 Acute combined systolic (congestive) and diastolic (congestive) heart failure (principal); N17.9 Acute kidney failure, unspecified; E87.1 Hypo-osmolality and hyponatremia; M62.82 Rhabdomyolysis; I48.0 Paroxysmal atrial fibrillation; E80.6 Other disorders of bilirubin metabolism; H93.8X2 Other specified disorders of left ear; R74.01 Elevation of levels of liver transaminase levels; E87.5 Hyperkalemia; R11.2 Nausea with vomiting, unspecified; R53.81 Other malaise; R51.9 Headache, unspecified; R19.7 Diarrhea, unspecified; R68.83 Chills (without fever); R76.8 Other specified abnormal immunological findings in serum; D72.829 Elevated white blood cell count, unspecified; F12.90 Cannabis use, unspecified, uncomplicated; M79.10 Myalgia, unspecified site; I51.7 Cardiomegaly; I95.9 Hypotension, unspecified; Z82.49 Family history of ischemic heart disease and other diseases of the circulatory system; Z87.891 Personal history of nicotine dependence; Z86.19 Personal history of other infectious and parasitic diseases
CPT/HCPCS: 36415; 71045; 76705; 78227; 80053; 80074; 80162; 82550; 83735; 83880; 84443; 84484; 85025; 85378; 86140; 86308; 86618; 86666; 86757; 87426; 87635; 93005; 93306; 93454; 93976; 96372; 96374; 99285; A9537; C1769; C1887; C1894; J1160; J1644; J1650; J1940; J2250; J3010; J3490; J7030; Q0163; Q9967

== ENCOUNTER → 2021-11-19 11:12 | Outpatient (BNVA) | payer MEDICAID, SELFPAY | PROVIDERS: Visit Provider Internal Medicine Cardiovascular Disease | DX: I48.0 Paroxysmal atrial fibrillation (principal); I50.20 Unspecified systolic (congestive) heart failure | CPT/HCPCS: 80053; 83735; 83880 ==

== ENCOUNTER → 2022-01-03 10:13 | Outpatient (BNVA) | payer MEDICAID, SELFPAY | PROVIDERS: Visit Provider Internal Medicine Cardiovascular Disease | DX: I50.20 Unspecified systolic (congestive) heart failure (principal); I48.0 Paroxysmal atrial fibrillation; R74.01 Elevation of levels of liver transaminase levels | CPT/HCPCS: 99214 ==

== ENCOUNTER 2022-11-11 10:54 | Outpatient (CLI) | payer MEDICAID, SELFPAY ==
--- NOTE | 2022-11-11 | USCV_ITS ---
Andrea Jhaveri Age: 47 Gender: M : 1975 Exam Date: 11/11/2022 11:21 Ordering Phys: Marii Godfrey Technologist: Singh Licea [place] [facility] [place]: systolic chf BP: 158 / 96 HR: 85 Rhythm: Atrial fibrillation Technical Quality: Adequate MEASUREMENTS (Male / Female) Normal Values 2D ECHO LV Diastolic Diameter PLAX 5.0 cm 4.2 - 5.9 / 3.9 - 5.3 cm LV Systolic Diameter PLAX 3.5 cm IVS Diastolic Thickness 0.9 cm 0.6 - 1.0 / 0.6 - 0.9 cm IVS Systolic Thickness 0.9 cm LVPW Diastolic Thickness 0.6 cm 0.6 - 1.0 / 0.6 - 0.9 cm LVPW Systolic Thickness 1.4 cm LVOT Diameter 2.2 cm LV Ejection Fraction 2D Teich 56.4 % LV Ejection Fraction MOD 2C 41.6 % LV Ejection Fraction 2C AL 40.2 % LA Diameter 3.5 cm LA Width 3.2 cm LA Height 6.1 cm RA Width 3.4 cm RA Height 5.4 cm Aorta at Sinotubular Diameter 2.1 cm IVC Diameter 1.6 cm M-MODE Aortic Annulus Diameter 3.2 cm LA Ao Ratio MM 1.2 MV E Point Septal Separation 0.8 cm DOPPLER AV Peak Velocity 88.0 cm/s LVOT Peak Velocity 71.0 cm/s AV Area Cont Eq vti 3.2 cm squared AV Area Cont Eq pk 3.1 cm squared MV Peak Velocity 69.0 cm/s MV Area PHT 5.0 cm squared MV E' Velocity 36.5 cm/s Mitral E to MV E' Ratio 5.6 Mitral E to LV E' Lateral Ratio 5.8 Mitral E to LV E' Septal Ratio 5.6 TR Peak Velocity 160.1 cm/s TR Peak Gradient 10.3 mmHg TR Mean Velocity 129.2 cm/s TR Mean Gradient 6.9 mmHg TR Velocity Time Integral 38.0 cm Right Atrial Pressure 3.0 mmHg Pulmonary Artery Systolic Pressu 13.3 mmHg RV Acceleration Time 0.1 s RV Ejection Time 0.3 s RV AcT/ET 0.5 FINDINGS Left Ventricle Normal left ventricular cavity size. Mildly decreased left ventricular systolic function. Left ventricular ejection fraction is estimated at 45-50 %. Mild global hypokinesis. Right Ventricle Normal right ventricular size and systolic function. Right ventricular systolic pressure 13.3 mmHg. Right Atrium Normal right atrial size. Left Atrium Mildly increased left atrial size. Mitral Valve Structurally normal mitral valve. No mitral valve stenosis. Trace mitral valve regurgitation. Aortic Valve Structurally normal trileaflet aortic valve. No aortic valve stenosis. No aortic valve regurgitation. Tricuspid Valve Structurally normal tricuspid valve. No tricuspid valve stenosis. Trace tricuspid valve regurgitation. Pulmonic Valve Structurally normal pulmonic valve. No pulmonary valve stenosis. No pulmonary valve regurgitation. Pericardium No pericardial effusion. Aorta Normal size aortic root and proximal ascending aorta. IVC Normal IVC dimension with >50% respiratory change of the inferior vena cava. CONCLUSIONS 1. Normal left ventricular cavity size. Mildly decreased left ventricular systolic function. Left ventricular ejection fraction is estimated at 45-50 %. Mild global hypokinesis. 2. Trace mitral and tricuspid valve regurgitation. 3. When compared to previous study dated 09/14/2021, left ventricular systolic function has improved. Becky Vega MD (Electronically Signed) Final Date: 19 November 2022 08:42 S
== END 2022-11-11 10:55 | disposition home or self-care (01) ==
PROVIDERS: Visit Provider Nurse Practitioner Family
DX: I50.20 Unspecified systolic (congestive) heart failure (principal)
CPT/HCPCS: 93306

== ENCOUNTER → 2024-08-26 14:57 | Outpatient (BNVA) | payer MEDICAID, SELFPAY | PROVIDERS: Visit Provider Internal Medicine Cardiovascular Disease | DX: I48.91 Unspecified atrial fibrillation (principal); R07.9 Chest pain, unspecified; I45.89 Other specified conduction disorders; R94.31 Abnormal electrocardiogram [ECG] [EKG] | CPT/HCPCS: 93005 ==

== ENCOUNTER 2024-10-06 06:07 | Outpatient (CLI) | payer MEDICAID, SELFPAY ==
--- NOTE | 2024-10-06 06:15 | USCV_ITS ---
JhaveriAndrea cordova Age: 49 Gender: M : 1975 Exam Date: 10/06/2024 06:18 Ordering Phys: Cosme Burns MD ([email or web address]) Technologist: EBONI [place]am [place] [facility] [place]ication: CARDIOMYOPATHY BP: 128 / 80 HR: 80 Rhythm: Atrial fibrillation Technical Quality: Adequate MEASUREMENTS (Male / Female) Normal Values 2D ECHO LV Diastolic Diameter PLAX 4.5 cm 4.2 - 5.9 / 3.9 - 5.3 cm IVS Diastolic Thickness 1.3 cm 0.6 - 1.0 / 0.6 - 0.9 cm IVS Systolic Thickness 2.3 cm LVPW Diastolic Thickness 1.8 cm 0.6 - 1.0 / 0.6 - 0.9 cm LVPW Systolic Thickness 2.6 cm LVOT Diameter 2.0 cm LV Ejection Fraction 2D Teich 58.3 % LV Ejection Fraction MOD 4C 52.6 % LV Ejection Fraction MOD 2C 53.8 % LV Ejection Fraction 2C AL 50.0 % LA Diameter 3.8 cm RA Systolic Volume 4C AL 39.0 ml RA Systolic Volume 4C MOD 40.0 ml LA Sys Volume AL 46.9 cm cubed LA Sys Volume Index AL 21.2 cm cubed/m squared Aorta at Sinotubular Diameter 2.8 cm IVC Diameter 2.1 cm M-MODE LA Ao Ratio MM 1.1 AV Cusp Separation MM 1.8 cm DOPPLER AV Peak Velocity 104.0 cm/s LVOT Peak Velocity 80.0 cm/s AV Area Cont Eq vti 2.4 cm squared AV Area Cont Eq pk 2.4 cm squared MV Peak Velocity 79.0 cm/s MV Area PHT 3.7 cm squared Mitral E to A Ratio 0.0 TR Peak Velocity 145.0 cm/s TR Peak Gradient 8.4 mmHg TR Mean Velocity 129.0 cm/s TR Mean Gradient 6.7 mmHg TR Velocity Time Integral 51.1 cm TV Peak E Velocity 45.0 cm/s PV Peak Velocity 104.0 cm/s RV Ejection Time 0.3 s FINDINGS Left Ventricle Left ventricle is normal in size. LV systolic function is mildly reduced with EF of 40-45%. Mild global hypokinesis seen. Right Ventricle Normal in size and function Right Atrium Normal in size Left Atrium Normal in size Mitral Valve Structurally normal mitral valve. Trace mitral regurgitation. Aortic Valve Structurally normal aortic valve. No significant stenosis or regurgitation. Tricuspid Valve Insufficient TR jet to evaluate RVSP. Pulmonic Valve Trace pulmonic regurgitation. Pericardium Normal Aorta Normal in size IVC Not well visualized CONCLUSIONS LV systolic function is mildly reduced with EF of 40 to 45%. Trace mitral regurgitation Trace pulmonic regurgitation Compared to prior echocardiogram from 2022, no significant changes are seen Rosas Yanez MD (Electronically Signed) Final Date: 07 October 2024 06:52 S
== END 2024-10-06 06:08 | disposition home or self-care (01) ==
PROVIDERS: Visit Provider Internal Medicine Cardiovascular Disease
DX: I50.20 Unspecified systolic (congestive) heart failure (principal); I48.0 Paroxysmal atrial fibrillation; R06.02 Shortness of breath
CPT/HCPCS: 93306